=== PATIENT | male | born 1955 | race Caucasian/White ===

== ENCOUNTER 2016-12-23 13:24 | Emergency (ER) | payer MEDICARE ==
[2016-05-11 12:56] VITALS: BMI 26.9
[~2016-12-23 13:24] MED LIST: GLUCOPHAGE1000 MG PO; HYDROCODON-ACE1 EAC7 PO; PRINIVIL20 MG PO
[2016-12-23 14:49] LABS: BASOPHILS 0.5 % (0.0-2.0); EOSINOPHILS 2.1 % (0-7); HEMATOCRIT 48.6 % (42.0-54.0); HEMOGLOBIN 16.9 g/dL (13.5-17.5); IMMATURE GRANULOCYTES 0.3 % (0-5); LYMPHOCYTES 36.7 % (15-50); MCH 31.4 pg (26.0-34.0); MCHC 34.8 g/dL (31.0-37.0); MCV 90.2 fL (80.0-100.0); MEAN PLATELET VOLUME 10.8 fL (7.4-10.4); MONOCYTES 6.7 % (2-11); NEUTROPHILS 53.7 % (40-80); PLATELET COUNT 186 10x3/uL (130-400); RBC 5.39 10x6/uL (4.20-6.10); WBC 9.4 10x3/uL (4.8-10.8)
[2016-12-23 15:14] LABS: ALKALINE PHOSPHATASE 52 U/L (46-116); ALT (SGPT) 54 U/L (10-68); BILIRUBIN - TOTAL 0.25 mg/dL (0.2-1.3); CALC OSMOLALITY 286 mosm/kg (275-300); CARBON DIOXIDE 25.9 mmol/L (21.0-32.0); CHLORIDE - SERUM 106 mmol/L (98-107); POTASSIUM - SERUM 4.2 mmol/L (3.5-5.1); SODIUM 141 mmol/L (136-145); UREA NITROGEN 12 mg/dL (7-18); eGFR NON AFRICAN AMERICAN 81 mL/min (90-120)
[2016-12-23 15:15] LABS: GLUCOSE 198 mg/dL (74-106)
[2016-12-23 15:18] LABS: CREATINE KINASE 57 UL (21-232)
[2016-12-23 15:22] LABS: TROPONIN-I < 0.017 ng/mL (0.000-0.060)
== END 2016-12-23 18:28 | disposition home or self-care (01) ==
LOC: D.ER 13:24
PROVIDERS: Emergency Medicine
DX: S16.1XXA Strain of muscle, fascia and tendon at neck level, initial encounter (principal); X58.XXXA Exposure to other specified factors, initial encounter; Y93.9 Activity, unspecified; Y92.9 Unspecified place or not applicable; M62.838 Other muscle spasm; I25.10 Atherosclerotic heart disease of native coronary artery without angina pectoris; E11.9 Type 2 diabetes mellitus without complications; I10 Essential (primary) hypertension; F17.200 Nicotine dependence, unspecified, uncomplicated

== ENCOUNTER 2018-04-29 23:19 | Outpatient (CLI) | payer MEDICARE, MEDICAID ==
[~2018-04-29] VITALS: Ht 177.8 cm; Wt 71.8 kg
--- NOTE | ~2018-04-29 | HEMODYNAMI ---
PATIENT:GARFIELD MÁRQUEZ MEDICAL RECORD: [id number] : 57 [facility] ADMISSION DATE: 04/30/18 Generatedon:05/01/201811:31 Patient name: GARFIELD MÁRUQEZ Patient #: [id number] SSN: : 1955 Date of study: 05/01/2018 Page: Of Hemodynamic Procedure Report Patient Data Patient Demographics Procedure consent was obtained First Name: GARFIELD Gender: Male Last Name: WILLI : 1955 Middle Initial: B Age: 62 year(s) Patient #: [id number] Race: Additional ID: [id number] Contact details [address]: [address] [place] [address] State: [place] City: [place] Zip code: [address] Past Medical History Allergies Allergen Reaction Date Comments Reported Morphine 05/11/2016 Admission Admission Data Admission Date: 04/30/2018 Admission Time: 1:10 Room #: D.2104 Weight (lbs.): 165 Weight (kg.): 74.84 Procedure Procedure Types Cath Procedure Diagnostic Procedure C [facility] w/Coronaries PCI Procedure Coronary Stent Coronary Stent Initial Procedure Description Procedure Date Procedure Date: 05/01/2018 Procedure Start Time: 11:08 Procedure End Time: 11:26 Procedure Staff Name Function Arthur Kirk MD Performing Physician Chandra Yu RT Monitor Sathish Hensley RN Nurse Clarita Coyle RT Scrub Procedure Data Cath Procedure Fluoroscopy Diagnostic fluoroscopy Total fluoroscopy Time: 4.3 time: 4.3 min min Diagnostic fluoroscopy Total fluoroscopy dose: 577 dose: 577 mGy mGy Contrast Material Contrast Material Type Amount (ml) Isovue 300 112 Entry Location Entry Primary Successful Side Size Upsize Upsize Entry Closure Succes sful Closure Location (Fr) 1 (Fr) 2 (Fr) Remarks Device Remarks Femoral Right 5 Fr 6 Fr Exoseal artery Short Estimated blood loss: 10 ml Diagnostic catheters Device Type Used For End Catheter Placement MULTIPACK JL 4.0 5Fr Procedure catheter MULTIPACK 3DRC 5Fr Procedure catheter MULTIPACK Pigtail 5 Fr Procedure catheter Procedure Complications No complications Procedure Medications Medication Administration Route Dosage 0.9% NaCl I.V. 100 ml/hr Oxygen etCO2 Nasal cannula 2 l/min Heparin Flush Bag added to field 2 bags (1000units/500ml NS) Lidocaine 2% added to field 20 Versed I.V. 2 mg Fentanyl I.V. 100 mcg Versed I.V. 1 mg Heparin Bolus I.V. 7500 units Versed I.V. 1 mg Plavix P.O. 600 mg Hemodynamics Rest Heart Rate: 90 (bpm) Pressure Samples Time Site Value (mmHg) Purpose Heart Use Rate(bpm) 11:09 AO 95/61(76) Snapshot 71 11:13 LV 112/-8,6 Snapshot 74 11:13 AO 101/56(76) Pullback 74 11:13 LV 136/-11,16 Pullback 74 Gradients Valve Time Site 1 Site 2 Mean SEP/DFP Peak To Heart Use (mmHg) (sec/min) Peak Rate (mmHg) (bpm) Aortic 11:13 LV AO 15 20 35 74 136/-11,16 101/56(76) Calculations Valve P-P Mean Valve Index Valve Source Name Gradient Area Flow (cm2) Aortic 35 15 35 15 Snapshots Pre Cath Intra NCS Post Cath Vital Signs Time Heart Resp SPO2 etCO2 NIBP (mmHg) Rhythm Pain Sedation Rate (ipm) (%) (mmHg) Status Level (bpm) 10:56:35 67 12 99 31.5 131/78(106) NSR 0 (11) 10(A) , No pain 11:01:16 71 16 100 33 119/78(97) NSR 0 (11) 10(A) , No pain 11:05:55 69 15 98 33.8 109/75(95) NSR 0 (11) 10(A) , No pain 11:10:31 70 13 98 9 103/67(83) NSR 0 (11) 9(A) , No pain 11:15:08 71 13 99 0 101/64(83) NSR 0 (11) 9(A) , No pain 11:19:42 72 13 99 40.5 108/64(83) NSR 0 (11) 10(A) , No pain 11:24:19 72 14 98 15.7 105/66(84) NSR 0 (11) 10(A) , No pain Medications Time Medication Route Dose Verified Delivered Reason Notes Effectiveness by by 10:57:15 0.9% NaCl I.V. 100 Sathish Sathish Per physician ml/hr Shellie Hensley RN RN 10:57:25 Oxygen etCO2 2 Sathish Sathish Per physician Nasal l/min Shellie Hensley cannula RN RN 10:57:45 Heparin Flush added 2 Sathish Sathish used for Bag to bags Shellie Hensley procedure (1000units/500ml field RN RN NS) 10:57:57 Lidocaine 2% added 20ml Sathish Sathish for local to vial Shellie Hensley anesthetic field RN RN 11:05:49 Versed I.V. 2 mg Sathish Sathish for sedation Shellie Hensley RN RN 11:05:57 Fentanyl I.V. 100 Sathish Sathish for sedation mcg Shellie Hensley RN RN 11:08:07 Versed I.V. 1 mg Sathish Sathish for sedation Shellie Hensley RN RN 11:17:53 Heparin Bolus I.V. 7,500 Sathish Sathish for units Shellie Hensley anticoagulation RN RN 11:21:50 Versed I.V. 1 mg Sathish Sathish for sedation Shellie Hensley RN RN 11:27:46 Plavix P.O. 600 Sathish Sathish for mg Shellie Hensley antiplatelet RN RN therapy Procedure Log Time Note 10:30:43 Chandra Yu RT(R) sent for patient. Start room use. 10:43:44 Time tracking: Regular hours (M-F 7:00 - 5:00) 10:43:48 Plan of Care:Hemodynamics will remain stable., Cardiac rhythm will remain stable., Comfort level will be maintained., Respiratory function will remain adequate., Patient/ family verbilizes understanding of procedure., Procedure tolerated without complication., Recovers from procedure without complications.. 10:53:13 Patient received from PCU to CCL 1 Alert and oriented. Tansferred to table in Supine position. 10:53:15 Warm blankets applied, and danette hugger turned on for patient comfort. 10:53:15 Correct patient and procedure confirmed by team. 10:53:16 Signed procedure consent form obtained from patient. 10:53:17 ECG and BP/O2 sat monitors applied to patient. 10:55:43 Vital chart was started 10:57:15 0.9% NaCl 100 ml/hr I.V. was administered by Sathish Hensley RN; Per physician; 10:57:25 Oxygen 2 l/min etCO2 Nasal cannula was administered by Sathish Hensley RN; Per physician; 10:57:45 Heparin Flush Bag (1000units/500ml NS) 2 bags added to field was administered by Sathish Hensley RN; used for procedure; 10:57:57 Lidocaine 2% 20ml vial added to field was administered by Sathish Hensley RN; for local anesthetic; 10:58:53 Baseline sample Acquired. 10:59:00 Rhythm: sinus rhythm 10:59:01 Full Disclosure recording started 10:59:06 H&P Date Dictated: 05/01/2018 Within 30 days and on chart.. 10:59:07 Pre-procedure instructions explained to patient. 10:59:07 Pre-op teaching completed and patient verbalized understanding. 10:59:10 Family unavailable. 10:59:12 Patient NPO since Midnight. 10:59:14 Is the patient allergic to Iodine/contrast media? No. 10:59:16 Is patient on blood thinner?No 10:59:18 Patient diabetic? Yes. 10:59:18 If diabetic: On Metformin? Yes 10:59:20 If on Metformin: Last Dose? 04/29/2018 10:59:24 Previous problem with sedation/anesthesia? No ? 10:59:26 Snore? Yes 10:59:27 Sleep apnea? Yes 10:59:30 Deviated septum? No 10:59:30 Opens mouth fully? Yes 10:59:31 Sticks out tongue? Yes 10:59:33 Airway obstruction? No ? 10:59:37 Dentures? Yes OUT 10:59:47 Pre procedure: right dorsailis pedis pulse 1+ Palpable, but thready & weak; easily obliterated 10:59:55 Patient pain scale 0/10 ?. 10:59:59 IV patent on arrival in left forearm with 0.9% NaCl at [facility]. 11:00:01 Lab results completed and on chart. 11:00:04 Right groin area was prepped with chlora-prep and draped in sterile fashion 11:00:05 Alarms reviewed by RMonae N. 11:00:06 Sharps counted by scrub and verified by RMonaeN. 11:00:14 Use device set Femoral Dx 11:00:17 PERCUTANEOUS ENTRY 19GA needle opened to sterile field. 11:00:18 Tegaderm 4 x 4 (1626W) opened to sterile field. 11:00:19 ACIST Manifold (93374) opened to sterile field. 11:00:20 ACIST Hand Control (53225) opened to sterile field. 11:00:21 ACIST Syringe (09379) opened to sterile field. 11:00:22 Bag Decanter (2002S) opened to sterile field. 11:00:22 Medline Cath Pack ([id number]) opened to sterile field. 11:00:23 DIAGNOSTIC WIRE .035 260cm J wire (992364) opened to sterile field. 11:00:24 DIAGNOSTIC Multipack 5Fr catheter set (TL0889) opened to sterile field. 11:00:25 SHEATH Prelude 5Fr 0.035 (FKI-0M-59-035) opened to sterile field. 11:04:03 --------ALL STOP TIME OUT------ 11::04 Final Timeout: patient, procedure, and site verified with staff and physician. All members of the team are in agreement. 11:04:07 Right groin site verified by team. 11:04:09 Physical assessment completed. ASA score P 2 - A patient with mild systemic disease as per Arthur Kirk MD. 11:04:12 Sedation plan: IV Moderate Sedation Medication:Versed, Fentanyl 11:05:49 Versed 2 mg I.V. was administered by Sathish Hensley RN; for sedation; 11:05:57 Fentanyl 100 mcg I.V. was administered by Sathish Hensley RN; for sedation; 11:08:04 Procedure started. 11:08:07 Versed 1 mg I.V. was administered by Sathish Hensley RN; for sedation; 11:08:09 Local anesthetic to right femoral artery with Lidocaine 2% by Arthur Kirk MD.INITIAL ACCESS ONLY 11:08:11 Zero performed for pressure channel P1 11:08:33 A 5 Fr sheath was inserted into the Right Femoral artery 11:09:48 A MULTIPACK JL 4.0 5Fr catheter was advanced over the wire and used for Procedure. 11:09:51 LCA angiography performed. 11:11:14 Catheter exchanged over wire. 11:11:22 A MULTIPACK 3DRC 5Fr catheter was advanced over the wire and used for Procedure. 11:11:26 RCA angiography performed. 11:13:01 Catheter exchanged over wire. 11:13:10 A MULTIPACK Pigtail 5 Fr catheter was advanced over the wire and used for Procedure. 11:13:29 LV angiography performed. 11:13:37 LV gram done using VALADEZ 11:13:41 EF : 60 % 11:13:51 LV hemodynamics recorded. 11:13:54 Injector settings: Ml/sec: 10, Volume: 20, 11:13:55 Catheter exchanged over wire. 11:13:59 Use device set KIRK PCI 11:14:07 SHEATH Prelude 6Fr 0.035 (EMD-8U-23-035) opened to sterile field. 11:14:13 GUIDE 6FR AR 1.0 catheter ([id number]) opened to sterile field. 11:14:15 BMW 300cm [place] 2 J wire ([id number]) opened to sterile field. 11:14:16 TUBING High Pressure Extension Tubing ([place]) ([id number]) opened to sterile field. 11:14:17 INFLATOR Merit BasixCompak (UJ2560) opened to sterile field. 11:14:25 Sheath upsized to a 6 Fr Short. 11:16:17 6 Fr AR 1 guide catheter was inserted over the wire 11:17:07 Patient Weight : 165 lbs 11:17:53 Heparin Bolus 7,500 units I.V. was administered by Sathish Hensley RN; for anticoagulation; 11:19:07 BMW wire advanced. 11:21:12 Wire advanced across lesion. 11:21:50 Versed 1 mg I.V. was administered by Sathish Hensley RN; for sedation; 11:23:30 Place stent Inflation Number: 1 A KLAUDIA OTW 2.5 x 22 stent ([id number]) was prepped and advanced across the Dist RCA. The stent was deployed at 14 BRAYAN for 0:10 (min:sec). 11:23:54 Stent catheter was removed intact over wire. 11:23:55 Wire removed. 11:23:55 Guide catheter removed. 11:24:21 EXOSEAL 6Fr (EX600) opened to sterile field. 11:24:38 Sheath removed intact; hemostasis achieved with Exoseal to the Right Femoral artery. 11:24:40 Procedure ended.(Physican Out) 11:25:31 Fluoroscopy time 04.30 minutes. 11::44 Fluoroscopy dose: 577 mGy 11::44 Flurop Dose total: 577 11:25:48 Contrast amount:Isovue 300 112ml. 11:25:49 Sharps counted by scrub and verified by R.N. 11:25:51 Insertion/operative site no bleeding no hematoma. 11:25:53 Post-op/insertion site Right Femoral artery dressed using a 4 x 4 and Tegaderm. 11:25:54 Post Procedure Pulses reassessed and unchanged 11:25:57 Post-procedure physical assessment completed. ASA score P 2 - A patient with mild systemic disease as per Arthur Kirk MD. 11:25:59 Post procedure rhythm: unchanged. 11:26:02 Estimated blood loss: 10 ml 11:26:04 Post procedure instruction explained to patient.Patient verbalizes understanding. 11:26:05 Patient needs reinforcement of post procedure teaching. 11:26:20 Procedure type changed to Cath procedure, Diagnostic procedure, LHC, LHC w/Coronaries, PCI procedure, Coronary Stent, Coronary Stent Initial 11:26:24 Procedure Complication : No complications 11:26:45 Procedure and supply charges have been captured, reviewed, submitted and are correct. 11:26:46 Vital chart was stopped 11:26:47 See physician's report for complete and final results. 11:26:48 Report given to PCU. 11:26:50 Patient transfered to PCU with Bed. 11:26:52 Procedure ended. 11:26:52 Full Disclosure recording stopped 11:27:46 Plavix 600 mg P.O. was administered by Sathish Hensley RN; for antiplatelet therapy; 11:30:45 End room use (Document Last) Intervention Summary Intervention Notes Time ActionType Lesion and Equipment Action# Pressure Duration Attributes Used 11:23:30 Place stent Dist RCA KLAUDIA OTW 2.5 1 14 00:10 x 22 stent ([id number]) Device Usage Item Name Manufacture Quantity Catalog Number Hospital Part Current Minimal Lot# / Charge Number Stock Stock Serial# Code PERCUTANEOUS [place] [employer] 1 [id number] [id number] 5 ENTRY 19GA needle Tegaderm 4 x 4 3M 1 1626W 413438 520409 560898 5 (1626W) ACIST Manifold Acist 1 35118 586755 101433 592399 5 (75370) [employer] Inc ACIST Hand Acist 1 37507 065491 987738 500565 5 Control (47873) [employer] Inc ACIST Syringe Acist 1 74266 353437 020361 663680 20 (10635) [employer] Systems Inc Bag Decanter Microtek 1 2002S 678819 94222 036212 5 (2001S) Medical Inc. Medline Cath Cardinal 1 [id number] 832675 68189 025565 5 Pack Health ([id number]) DIAGNOSTIC WIRE [facility] [place] 1 778022 157390 795027 997775 30 .035 260cm J wire (069030) DIAGNOSTIC Cardinal 1 UG3225 561470 52205 029108 30 Multipack 5Fr Health catheter set (NW2917) SHEATH Prelude Merit 1 ULU-1J-93-035 564951 674178 823024 5 5Fr 0.035 Medical (JEX-7V-42-035) MULTIPACK JL Cardinal 1 860440 5 4.0 5Fr Health catheter MULTIPACK 3DRC Cardinal 1 414203 5 5Fr catheter Health MULTIPACK Cardinal 1 412022 5 Pigtail 5 Fr Health catheter SHEATH Prelude Merit 1 YUO-7T-96-35 730571 1188223 277678 5 6Fr 0.035 Medical (GIN-2R-83-035) GUIDE 6FR AR Medtronic 1 [id number] 963543 64121 973927 1 1.0 catheter (YM6IN94) BMW 300cm Cruz 1 [id number] 717072 590141 765414 5 [place] 2 J Vascular wire ([id number]) TUBING High Merit 1 [id number] 002760 10899 809390 10 Pressure Medical Extension Tubing (Kirk) (ZA9710S) INFLATOR Merit Merit 1 UO0593 024468 633206 350703 15 [facility]6Sense Medical (AI4951) KLAUDIA OTW 2.5 x Medtronic 1 [id number] 727299 88653 540622 5 [id number] 22 stent ([id number]) EXOSEAL 6Fr Cardinal 1 EX600 999554 764666 941257 10 (EX600) Health Signature Audit [place] Stage Time Signature Unsigned Intra-Procedure 05/01/2018 Chandra Yu 11:31:03 AM RT(R) Signatures Monitor : Chandra Yu RT Signature : Date : Time : [place] [id number] [place] [address]
[2018-04-29] MEDS ORDERED: LEVEMIR100 U/M1 SC (23:24)
[2018-04-29 23:37] LABS: APPEARANCE CLEAR (CLEAR); BILIRUBIN NEGATIVE (NEGATIVE); COLOR DK YELLOW (YELLOW); GLUCOSE NEGATIVE (NEGATIVE); KETONE NEGATIVE (NEGATIVE); NITRITE NEGATIVE (NEGATIVE); PROTEIN NEGATIVE (NEGATIVE); UROBILINOGEN NORMAL (NORMAL)
[2018-04-29 23:42] LABS: UDS - AMPHET NEGATIVE QUAL (NEGATIVE); UDS - BARB NEGATIVE QUAL (NEGATIVE); UDS - BENZO NEGATIVE QUAL (NEGATIVE); UDS - COCAINE NEGATIVE QUAL (NEGATIVE); UDS - OPIATE NEGATIVE QUAL (NEGATIVE); UDS - PCP NEGATIVE QUAL (NEGATIVE); UDS - THC NEGATIVE QUAL (NEGATIVE)
[2018-04-29 23:55] LABS: BASOPHILS 0.2 % (0-2); EOSINOPHILS 1.8 % (0-7); HEMATOCRIT 45.6 % (42.0-54.0); HEMOGLOBIN 15.6 g/dL (13.5-17.5); IMMATURE GRANULOCYTES 0.4 % (0-5); LYMPHOCYTES 29.7 % (15-50); MCHC 34.2 g/dL (31.0-37.0); MCV 90.5 fL (80.0-100.0); MEAN PLATELET VOLUME 9.7 fL (7.4-10.4); MONOCYTES 6.5 % (2-11); NEUTROPHILS 61.4 % (40-80); PLATELET COUNT 220 10x3/uL (130-400); RBC 5.04 10x6/uL (4.20-6.10); RDW 12.8 % (11.5-14.5)
[2018-04-30 00:18] LABS: ALKALINE PHOSPHATASE 56 U/L (46-116); ALT (SGPT) 26 U/L (10-68); BILIRUBIN - TOTAL 0.33 mg/dL (0.2-1.3); CALC OSMOLALITY 279 mosm/kg (275-300); CALCIUM 8.5 mg/dL (8.5-10.1); CARBON DIOXIDE 23.5 mmol/L (21.0-32.0); CHLORIDE - SERUM 108 mmol/L (98-107); POTASSIUM - SERUM 4.3 mmol/L (3.5-5.1); SODIUM 139 mmol/L (136-145); UREA NITROGEN 13 mg/dL (7-18); eGFR NON AFRICAN AMERICAN 81 mL/min (90-120)
[2018-04-30 00:19] LABS: GLUCOSE 143 mg/dL (74-106)
[2018-04-30 00:22] LABS: LIPASE 179 U/L (73-393); PRO BNP 32 pg/mL (0-125); TROPONIN-I < 0.017 ng/mL (0.000-0.060)
[2018-04-30 03:45] VITALS: Ht 177.8 cm; Wt 71.8 kg
[2018-04-30 06:06] VITALS: BP 137/93
[2018-04-30 07:53] LABS: BASOPHILS 0.2 % (0-2); HEMATOCRIT 46.4 % (42.0-54.0); HEMOGLOBIN 15.7 g/dL (13.5-17.5); IMMATURE GRANULOCYTES 0.3 % (0-5); LYMPHOCYTES 33.2 % (15-50); MCHC 33.8 g/dL (31.0-37.0); MCV 91.5 fL (80.0-100.0); MEAN PLATELET VOLUME 10.4 fL (7.4-10.4); MONOCYTES 7.2 % (2-11); NEUTROPHILS 57.1 % (40-80); PLATELET COUNT 228 10x3/uL (130-400); RBC 5.07 10x6/uL (4.20-6.10); RDW 13.1 % (11.5-14.5)
[2018-04-30 07:59] LABS: CALC OSMOLALITY 281 mosm/kg (275-300); CALCIUM 8.2 mg/dL (8.5-10.1); CARBON DIOXIDE 23.6 mmol/L (21.0-32.0); CHLORIDE - SERUM 108 mmol/L (98-107); GLUCOSE 128 mg/dL (74-106); POTASSIUM - SERUM 4.8 mmol/L (3.5-5.1); SODIUM 140 mmol/L (136-145); UREA NITROGEN 16 mg/dL (7-18); eGFR NON AFRICAN AMERICAN 81 mL/min (90-120)
[2018-04-30 08:48] VITALS: BP 131/85
[2018-04-30 11:58] VITALS: BP 145/83
[2018-04-30 17:09] VITALS: BP 156/93
[2018-04-30 20:30] VITALS: BP 126/68
[2018-05-01 00:30] VITALS: BP 112/66
[2018-05-01 04:30] VITALS: BP 138/83
[2018-05-01 04:54] LABS: BASOPHILS 0.2 % (0-2); HEMOGLOBIN 15.8 g/dL (13.5-17.5); IMMATURE GRANULOCYTES 0.3 % (0-5); LYMPHOCYTES 29.5 % (15-50); MCH 30.7 pg (26.0-34.0); MCHC 33.6 g/dL (31.0-37.0); MCV 91.3 fL (80.0-100.0); MONOCYTES 8.2 % (2-11); NEUTROPHILS 58.8 % (40-80); PLATELET COUNT 207 10x3/uL (130-400); RBC 5.15 10x6/uL (4.20-6.10); RDW 12.7 % (11.5-14.5); WBC 10.1 10x3/uL (4.8-10.8)
[2018-05-01 05:16] LABS: ALBUMIN 2.8 g/dL (3.4-5.0); ALKALINE PHOSPHATASE 56 U/L (46-116); ALT (SGPT) 24 U/L (10-68); BILIRUBIN - TOTAL 0.41 mg/dL (0.2-1.3); CALC OSMOLALITY 280 mosm/kg (275-300); CALCIUM 8.2 mg/dL (8.5-10.1); CARBON DIOXIDE 28.1 mmol/L (21.0-32.0); CHLORIDE - SERUM 105 mmol/L (98-107); CREATININE - SERUM 0.9 mg/dL (0.6-1.3); GLUCOSE 128 mg/dL (74-106); SODIUM 139 mmol/L (136-145); UREA NITROGEN 15 mg/dL (7-18); eGFR NON AFRICAN AMERICAN > 90 mL/min (90-120)
[2018-05-01 09:39] VITALS: BP 109/70
[2018-05-01] MEDS ORDERED: PLAVIX75 MG PO (11:47)
[2018-05-01] MEDS ORDERED: NICODERM C1 PATCH .1 TRANSDERM (11:47)
[2018-05-01 13:30] VITALS: BP 110/59
== END 2018-05-01 15:47 | disposition home or self-care (01) ==
LOC: OBSVTIME → D.OPS 23:19 → D.ER 23:19 → D.M2 04-30 01:10 → OBSVTIME 04-30 01:10 → D.M2 04-30 01:10 → D.ER 04-30 01:10 → EDSTATUS 05-01 12:15 → D.M2 05-01 15:47 → D.OPS 05-01 15:47 → D.M2 05-01 15:47
PROVIDERS: Family Medicine; Internal Medicine Cardiovascular Disease
DX: I25.110 Atherosclerotic heart disease of native coronary artery with unstable angina pectoris (principal); Z95.5 Presence of coronary angioplasty implant and graft; E78.5 Hyperlipidemia, unspecified; E11.9 Type 2 diabetes mellitus without complications; F17.203 Nicotine dependence unspecified, with withdrawal; I10 Essential (primary) hypertension
CPT/HCPCS: 93458; C9600

== ENCOUNTER 2019-03-25 06:52 | Emergency (ER) | payer MEDICARE, MEDICAID ==
[~2019-03-25] VITALS: Ht 177.8 cm; Wt 72.7 kg
[~2019-03-25 06:52] MED LIST changes: +LEVEMIR100 U/M1 SC; +NICODERM C1 PATCH .1 TRANSDERM; +PLAVIX75 MG PO
[2019-03-25 06:55] VITALS: Ht 177.8 cm; Wt 72.7 kg
[2019-03-25 07:21] LABS: APPEARANCE CLEAR (CLEAR); BILIRUBIN NEGATIVE (NEGATIVE); COLOR YELLOW (YELLOW); GLUCOSE NEGATIVE (NEGATIVE); KETONE NEGATIVE (NEGATIVE); NITRITE NEGATIVE (NEGATIVE); PROTEIN NEGATIVE (NEGATIVE); UROBILINOGEN NORMAL (NORMAL)
[2019-03-25 07:24] LABS: BASOPHILS 0.1 % (0-2); HEMATOCRIT 48.4 % (42.0-54.0); HEMOGLOBIN 17.1 g/dL (13.5-17.5); IMMATURE GRANULOCYTES 0.4 % (0-5); LYMPHOCYTES 8.4 % (15-50); MCH 31.4 pg (26.0-34.0); MCHC 35.3 g/dL (31.0-37.0); MCV 88.8 fL (80.0-100.0); MEAN PLATELET VOLUME 9.5 fL (7.4-10.4); MONOCYTES 3.8 % (2-11); NEUTROPHILS 85.3 % (40-80); PLATELET COUNT 210 10x3/uL (130-400); RBC 5.45 10x6/uL (4.20-6.10); RDW 13.7 % (11.5-14.5); WBC 10.7 10x3/uL (4.8-10.8)
[2019-03-25 07:37] LABS: UDS - AMPHET POSITIVE QUAL (NEGATIVE); UDS - BARB NEGATIVE QUAL (NEGATIVE); UDS - BENZO NEGATIVE QUAL (NEGATIVE); UDS - COCAINE NEGATIVE QUAL (NEGATIVE); UDS - OPIATE NEGATIVE QUAL (NEGATIVE); UDS - PCP NEGATIVE QUAL (NEGATIVE); UDS - THC NEGATIVE QUAL (NEGATIVE)
[2019-03-25 07:38] LABS: INR 1.03 (0.85-1.17)
--- NOTE | 2019-03-25 08:07 | NUR ---
DR. MASON NOTIFIED AND 1:1 SITTER OBSERVATION ORDERED. SITTER AT BEDSIDE. NOTIFIED CHARGE NURSE AND ATTENDING IN REGARDS TO ASSESSMENT FINDINGS. RESOURCES GIVEN TO PT AND SAFETY PLAN INITIATED.
[2019-03-25 08:23] LABS: ALBUMIN 3.1 g/dL (3.4-5.0); ANION GAP 12.1 mmol/L (8-16); BILIRUBIN - TOTAL 0.63 mg/dL (0.2-1.3); CALCIUM 8.2 mg/dL (8.5-10.1); CARBON DIOXIDE 25.6 mmol/L (21.0-32.0); CREATININE - SERUM 1.1 mg/dL (0.6-1.3); POTASSIUM - SERUM 3.7 mmol/L (3.5-5.1)
[2019-03-25 08:26] LABS: ACETAMINOPHEN 0.4 ug/mL (10.0-30.0); MAGNESIUM - SERUM 1.8 mg/dL (1.8-2.4)
[2019-03-25 08:43] LABS: CKMB 2.5 U/L (0.0-3.6); CREATINE KINASE 50 UL (21-232); TROPONIN-I < 0.017 ng/mL (0.000-0.060)
[2019-03-25 13:09] VITALS: BP 122/72
== END 2019-03-25 13:10 ==
LOC: D.ER 06:52
PROVIDERS: Emergency Medicine
DX: F32.9 Major depressive disorder, single episode, unspecified (principal); F15.10 Other stimulant abuse, uncomplicated; R45.851 Suicidal ideations

== ENCOUNTER 2019-04-28 11:47 | Outpatient (CLI) | payer MEDICARE, MEDICAID ==
[~2019-04-28] VITALS: Ht 177.8 cm; Wt 77.1 kg
--- NOTE | ~2019-04-28 | HEMODYNAMI ---
PATIENT:GARFIELD MÁRQUEZ MEDICAL RECORD: [id number] : 57 LOCATION:[facility] D.2118 ADMISSION DATE: 04/28/19 Generatedon:04/30/20198:49 Patient name: GARFIELD MÁRQUEZ Patient #: [id number] SSN: : 1955 Date of study: 04/30/2019 Page: Of Hemodynamic Procedure Report Patient Data Patient Demographics Procedure consent was obtained First Name: GARFIELD Gender: Male Last Name: WILLI : 1955 [facility] Initial: B Age: 63 year(s) Patient #: [id number] Race: Additional ID: [id number] Contact details [address]: [address] [place] [address] State: [place] City: [place] Zip code: [address] Past Medical History Allergies Allergen Reaction Date Comments Reported Morphine 05/11/2016 Morphine 04/30/2019 Admission Admission Data Admission Date: 04/28/2019 Admission Time: 11:47 Room #: D.2118 Weight (lbs.): 169.76 Weight (kg.): 77 Lab Results Lab Result Date: 04/30/2019 Lab Result Time: 0:00 Biochemistry Name Units Result Min Max BUN mg/dl 22 --(----)-* 7 18 Creatinine mg/dl 1.1 --(--*-)-- 0.6 1.3 eGFR ml/min 72 *-(----)-- 90 120 NONAFRICAN CBC Name Units Result Min Max Hematocrit % 43.1 --(*---)-- 42 54 Hemoglobin g/dl 15 --(-*--)-- 13.5 17.5 Procedure Procedure Types Cath Procedure Diagnostic Procedure [facility] w/Coronaries Sedation Charges Moderate Sedation up to 30 minutes PCI Procedure PTCA PTCA Initial Procedure Description Procedure Date Procedure Date: 04/30/2019 Procedure Start Time: 8:09 Procedure End Time: 8:42 Procedure Staff Name Function Yaron Zabala RN Director Of Diversity And Inclusion Deepali eRad RN Nurse Arthur Kirk MD Performing Physician Vijay Enamorado RT Monitor BrandiiXpert RT Scrub Procedure Data Cath Procedure Fluoroscopy Diagnostic fluoroscopy Total fluoroscopy Time: 9.5 time: 9.5 min min Diagnostic fluoroscopy Total fluoroscopy dose: dose: 1127 mGy 1127 mGy Contrast Material Contrast Material Type Amount (ml) Isovue 370 90 Entry Location Entry Primary Successful Side Size Upsize Upsize Entry Closure Succes sful Closure Location (Fr) 1 (Fr) 2 (Fr) Remarks Device Remarks Femoral Right 5 Fr 6 Fr Exoseal artery Short Estimated blood loss: 10 ml Diagnostic catheters Device Type Used For End Catheter Placement MULTIPACK JL 4.0 5Fr Procedure catheter MULTIPACK 3DRC 5Fr Procedure catheter MULTIPACK Pigtail 5 Fr Procedure catheter Procedure Complications No complications Procedure Medications Medication Administration Route Dosage Oxygen etCO2 Nasal cannula 2 l/min Lidocaine 2% added to field 20 Heparin Flush Bag added to field 2 bags (1000units/500ml NS) 0.9% NaCl I.V. 100 ml/hr Versed I.V. 2 mg Fentanyl I.V. 50 mcg Versed I.V. 2 mg Heparin Bolus I.V. 7500 units Nitroglycerin IC/IA I.C. 50 mcg Plavix P.O. 600 mg PHYSICIAN SUMMARY Coronary tree Anatomy Arteries Artery Location Description Pre Post Remarks Stenosis Stenosis RCA Hemodynamics Rest HGB: 15 (g/dl) Heart Rate: 55 (bpm) Pressure Samples Time Site Value (mmHg) Purpose Heart Use Rate(bpm) 8:14 AO 97/63(80) Snapshot 61 8:16 LV 113/1,11 Snapshot 61 8:17 LV 122/4,44 Pullback 60 8:17 AO 113/50(76) Pullback 60 Gradients Valve Time Site 1 Site 2 Mean SEP/DFP Peak To Heart Use (mmHg) (sec/min) Peak Rate (mmHg) (bpm) Aortic 8:17 LV AO 18 15 9 60 122/4,44 113/50(76) Calculations Valve P-P Mean Valve Index Valve Source Name Gradient Area Flow (cm2) Aortic 9 18 9 18 Snapshots Samples Rest 8:05 Baseline whole waves, page 1 8:06 Baseline whole waves, page 1 8:14 Snapshot AO whole waves, page 1 8:16 Snapshot LV whole waves, page 1 8:17 PullBack LV/AO Average Pre Cath Intra NCS Post Cath Vital Signs Time Heart Resp SPO2 etCO2 NIBP (mmHg) Rhythm Pain Sedation Rate (ipm) (%) (mmHg) Status Level (bpm) 8:04:25 55 12 100 37.2 115/71(91) SB 1 (11) 10(A) , Very mild 8:07:15 56 11 99 33.5 124/74(98) SB 1 (11) 10(A) , Very mild 8:11:27 56 12 99 32.7 116/73(91) SB 0 (11) 10(A) , No pain 8:15:35 61 12 99 38.7 117/76(98) SB 0 (11) 9(A) , No pain 8:19:42 57 11 99 30.5 126/77(99) SB 0 (11) 9(A) , No pain 8:23:54 57 11 99 35.7 114/71(85) SB 0 (11) 9(A) , No pain 8:27:54 57 12 99 33.5 111/72(95) SB 0 (11) 9(A) , No pain 8:32:00 59 13 98 28.2 112/75(90) SB 0 (11) 9(A) , No pain 8:36:06 57 12 98 32 114/75(94) SB 0 (11) 9(A) , No pain 8:40:11 57 13 98 33.5 123/78(107) SB 0 (11) 10(A) , No pain Medications Time Medication Route Dose Verified Delivered Reason Notes Effectiveness by by 7:50:59 Oxygen etCO2 2 Arthur Buffie used for Nasal l/min Reagan Read RN procedure cannula 7:51:07 Lidocaine 2% added 20ml Arthur Arthur for local to vial Reagan Kirk MD anesthetic field 7:51:12 Heparin Flush added 2 Arthur Arthur used for Bag to bags Reagan Kirk MD procedure (1000units/500ml field NS) 7:51:21 0.9% NaCl I.V. 100 Arthur Buffie Per physician ml/hr Reagan Read RN 8:09:09 Versed I.V. 2 mg Arthur Buffie for sedation Reagan Read RN 8:09:16 Fentanyl I.V. 50 Arthur Buffie for sedation mcg Reagan Read RN 8:14:01 Versed I.V. 2 mg Arthur Shonnaie for sedation Reagan Read RN 8:21:16 Heparin Bolus I.V. 7,500 Arthur Shonnaie for Verifi ed units Reagan Read RN anticoagulation with Dr. Kirk 8:29:46 Nitroglycerin I.C. 50 Arthur Arthur for IC/IA mcg Reagan Kirk MD vasodilation 8:42:47 Plavix P.O. 600 Arthur Shonnaie for mg Reagan Read RN antiplatelet therapy Procedure Log Time Note 7:38:41 Signed procedure consent form obtained from patient. 7:38:43 Diagnostic Cath status Urgent 7:38:43 Time tracking: Regular hours (M-F 7:00 - 5:00) 7:38:48 Plan of Care:Hemodynamics will remain stable., Cardiac rhythm will remain stable., Comfort level will be maintained., Respiratory function will remain adequate., Patient/ family verbilizes understanding of procedure., Procedure tolerated without complication., Recovers from procedure without complications.. 7:42:09 Patient allergic to Morphine 7:42:48 Vijay Enamorado RT(R) sent for patient. Start room use. 7:44:28 Patient Weight : 169.76 lbs 7:50:24 Per pt report, states he has not taken plavix in a while at home. has had 2 doses in hospital. 7:50:59 Oxygen 2 l/min etCO2 Nasal cannula was administered by Deepali Read RN; used for procedure; 7:51:07 Lidocaine 2% 20ml vial added to field was administered by Arthur Kirk MD; for local anesthetic; 7:51:12 Heparin Flush Bag (1000units/500ml NS) 2 bags added to field was administered by Arthur Kirk MD; used for procedure; 7:51:21 0.9% NaCl 100 ml/hr I.V. was administered by Deepali Raed RN; Per physician; 7:51:56 Lab Result : Hemoglobin 15 g/dl 7:51:56 Lab Result : Hematocrit 43.1 % 7:51:56 Lab Result : eGFR NONAFRICAN 72 ml/min 7:51:56 Lab Result : BUN 22 mg/dl 7:51:56 Lab Result : Creatinine 1.1 mg/dl 7:52:54 Patient received from Med II to CCL 1 Alert and oriented. Tansferred to table in Supine position. 7:52:55 Warm blankets applied, and danette hugger turned on for patient comfort. 7:52:56 ECG and BP/O2 sat monitors applied to patient. 7:52:56 Correct patient and procedure confirmed by team. 8:03:17 Vital chart was started 8:05:11 Baseline sample Acquired. 8:05:15 Rhythm: sinus bradycardia 8:05:16 Full Disclosure recording started 8:05:35 Full Disclosure recording stopped 8:06:13 Vital chart was started 8:06:24 Baseline sample Acquired. 8:06:25 Full Disclosure recording started 8:07:00 H&P Date Dictated: 04/28/2019 Within 30 days and on chart., H&P Addendum completed by physician on day of procedure. (MUST COMPLETE FOR ALL OUTPATIENTS). 8:07:01 Pre-procedure instructions explained to patient. 8:07:02 Pre-op teaching completed and patient verbalized understanding. 8:07:14 Family unavailable. 8:07:15 Patient NPO since Midnight. 8:07:16 Is the patient allergic to Iodine/contrast media? No. 8:07:18 Is patient on blood thinner?Yes 8:07:22 ACC The patient was administered the following blood thiners within the last 24 hours: ACCPlavix 8:07:24 Patient diabetic? Yes. 8:07:26 If diabetic: On Metformin? Yes 8:07:29 Previous problem with sedation/anesthesia? No ? 8:07:30 Snore? Yes 8:07:32 Sleep apnea? Yes 8:07:33 Deviated septum? No 8:07:34 Opens mouth fully? Yes 8:07:35 Sticks out tongue? Yes 8:07:44 Airway obstruction? Yes COPD 8:07:54 Dentures? Yes OUT 8:07:59 Pre procedure: right dorsailis pedis pulse 1+ Palpable, but thready & weak; easily obliterated 8:08:08 Patient pain scale 0/10 ?. 8:08:19 IV patent on arrival in left hand with 0.9% NaCl at [facility]. 8:08:21 Lab results completed and on chart. 8:08:25 Right groin area was prepped with chlora-prep and draped in sterile fashion 8:08:26 Alarms reviewed by R. N. 8:08:27 Sharps counted by scrub and verified by R.N. 8:08:28 Final Timeout: patient, procedure, and site verified with staff and physician. All members of the team are in agreement. 8:08:28 --------ALL STOP TIME OUT------ 8:08:32 Right groin site verified by team. 8:08:35 Fire Safety Assessment: A--An alcohol-based skin anteseptic being used preoperatively., C--Open oxygen or nitrous oxide is being used., D--An ESU, laser, or fiber-optic light is being used. 8:08:42 Physical assessment completed. ASA score P 2 - A patient with mild systemic disease as per Arthur Kirk MD. 8:08:58 2) 60-89 Mildly reduced kidney function, and other findings (as for stage 1) point to kidney disease. 8:09:09 Versed 2 mg I.V. was administered by Deepali Read RN; for sedation; 8:09:13 Maximum allowable contrast does (3.7 X eGFR X 0.75)199 ml. 8:09:16 Fentanyl 50 mcg I.V. was administered by Deepali Read RN; for sedation; 8:09:17 Sedation plan: IV Moderate Sedation Medication:Versed, Fentanyl 8:09:24 Use device set Femoral Dx 8:09:25 Tegaderm 4 x 4 ([id number]) opened to sterile field. 8:09:28 ACIST Syringe (67614) opened to sterile field. 8:09:29 Medline Cath Pack ([id number]) opened to sterile field. 8:09:29 Bag Decanter (2002S) opened to sterile field. 8:09:30 ACIST Manifold (61898) opened to sterile field. 8:09:30 ACIST Hand Control (42986) opened to sterile field. 8:09:31 DIAGNOSTIC Multipack 5Fr catheter set ([id number]) opened to sterile field. 8:09:33 EMERALD Guide Wire (502-708) opened to sterile field. 8:09:34 SHEATH 5FR Ellenwood (VVL344) opened to sterile field. 8:09:38 Procedure started. 8:09:42 Local anesthetic to right femoral artery with Lidocaine 2% by Arthur Kirk MD.INITIAL ACCESS ONLY 8:11:06 Zero performed for pressure channel P1 8:11:08 Zero performed for pressure channel P1 8:11:11 Zero performed for pressure channel P1 8:11:14 Zero performed for pressure channel P1 8:11:32 A 5 Fr sheath was inserted into the Right Femoral artery 8:11:41 A MULTIPACK JL 4.0 5Fr catheter was advanced over the wire and used for Procedure. 8:12:28 LCA angiography performed. 8:13:12 Catheter exchanged over wire. 8:13:50 A MULTIPACK 3DRC 5Fr catheter was advanced over the wire and used for Procedure. 8:14:01 Versed 2 mg I.V. was administered by Deepali Read RN; for sedation; 8:14:28 RCA angiography performed. 8:14:50 Catheter exchanged over wire. 8:15:25 A MULTIPACK Pigtail 5 Fr catheter was advanced over the wire and used for Procedure. 8:16:36 LV angiography performed. 8:16:38 LV gram done using VALADEZ 8:16:49 EF : 55 % 8:17:03 LV hemodynamics recorded. 8:17:08 Injector settings: Ml/sec: 10, Volume: 20, 8:17:54 Catheter exchanged over wire. 8:18:28 Use device set KIRK PCI 8:18:29 SHEATH 6FR Ellenwood (HYD084) opened to sterile field. 8:18:33 BMW 300cm Townsend 2 J wire ([id number]) opened to sterile field. 8:18:35 INFLATOR Merit BasixCompak (XK9165) opened to sterile field. 8:18:37 TUBING High Pressure Extension Tubing (Reagan) ([id number]) opened to sterile field. 8:19:51 GUIDE 6FR AR 1.0 catheter ([id number]) opened to sterile field. 8:20:04 Sheath upsized to a 6 Fr Short. 8:20:15 6 Fr AR 1 guide catheter was inserted over the wire 8:20:28 Pre PCI Site: [place] dRCA has 99% stenosis. 8:21:16 Heparin Bolus 7,500 units I.V. was administered by Deepali Read RN; for anticoagulation; Verified with Dr. Kirk 8:21:23 BMW wire advanced. 8:23:05 Wire advanced across lesion. 8:26:03 Inflate balloon Inflation number: 1 A EMERGE OTW 2.5 x 15 balloon ([id number]) was prepped and advanced across the R PDA -1, then inflated to 14 BRAYAN for 0:10 (min:sec) -1. 8:27:38 Inflation number: 2 The EMERGE OTW 2.5 x 15 balloon ([id number]) was reinflated across the R PDA -1, to 16 BRAYAN for 0:10 (min:sec) -1. 8:29:02 Balloon removed over the wire. 8:29:46 Nitroglycerin IC/IA 50 mcg I.C. was administered by Arthur Kirk MD; for vasodilation; 8:35:14 Inflate balloon Inflation number: 3 A NC EUPHORA 3.0 x 15 balloon ([id number]) was prepped and advanced across the R PDA , then inflated to 12 BRAYAN for 0:10 (min:sec) . 8:35:37 Inflation number: 4 The NC EUPHORA 3.0 x 15 balloon ([id number]) was reinflated across the R PDA , to 13 BRAYAN for 0:10 (min:sec) . 8:37:05 Inflation number: 5 The NC EUPHORA 3.0 x 15 balloon ([id number]) was reinflated across the R PDA , to 16 BRYAAN for 0:10 (min:sec) . 8:37:57 EXOSEAL 6Fr (EX600) opened to sterile field. 8:38:02 Balloon removed over the wire. 8:38:03 Wire removed. 8:38:06 Guide catheter removed. 8:38:22 Post PCI Site: [place] PDA has 0% stenosis. 8:39:19 Sheath removed intact; hemostasis achieved with Exoseal to the Right Femoral artery. 8:39:21 Procedure ended.(Physican Out) 8:40:39 Fluoroscopy time 09.50 minutes. 8:40:45 Fluoroscopy dose: 1127 mGy 8:40:45 Flurop Dose total: 1127 8:40:57 Contrast amount:Isovue 370 90ml. 8:41:06 Sharps counted by scrub and verified by R.N. 8:41:08 Insertion/operative site no bleeding no hematoma. 8:41:10 Post-op/insertion site Right Femoral artery dressed using a 4 x 4 and Tegaderm. 8:41:13 Post right femoral artery:stable, soft, clean and dry 8:41:15 Post Procedure Pulses reassessed and unchanged 8:41:20 Post-procedure physical assessment completed. ASA score P 2 - A patient with mild systemic disease as per Arthur Kirk MD. 8:41:22 Post procedure rhythm: unchanged. 8:41:24 Estimated blood loss: 10 ml 8:41:26 Patient needs reinforcement of post procedure teaching. 8:41:26 Post procedure instruction explained to patient.Patient verbalizes understanding. 8:41:34 Procedure type changed to Cath procedure, Diagnostic procedure, LHC, LHC w/Coronaries, Sedation Charges, Moderate Sedation up to 30 minutes, PCI procedure, PTCA, PTCA Initial 8:42:23 Procedure and supply charges have been captured, reviewed, submitted and are correct. 8:42:26 Procedure Complication : No complications 8:42:29 Vital chart was stopped 8:42:29 See physician's report for complete and final results. 8:42:30 Report given to PCU. 8:42:33 Patient transfered to PCU with Stretcher. 8:42:35 Procedure ended. 8:42:35 Full Disclosure recording stopped 8:42:40 End room use (Document Last) 8:42:47 Plavix 600 mg P.O. was administered by Deepali Read RN; for antiplatelet therapy; Intervention Summary Intervention Notes Time ActionType Lesion and Equipment Action# Pressure Duration Attributes Used 8:26:03 Inflate R PDA EMERGE OTW 1 14 00:10 balloon 2.5 x 15 balloon ([id number]) 8:27:38 Reinflate R PDA EMERGE OTW 2 16 00:10 balloon 2.5 x 15 balloon ([id number]) 8:35:14 Inflate R PDA NC EUPHORA 3 12 00:10 balloon 3.0 x 15 balloon ([id number]) 8:35:37 Reinflate R PDA NC EUPHORA 4 13 00:10 balloon 3.0 x 15 balloon ([id number]) 8:37:05 Reinflate R PDA NC EUPHORA 5 16 00:10 balloon 3.0 x 15 balloon ([id number]) Device Usage Item Name Manufacture Quantity Catalog Number Hospital Part Current Min imal Lot# / Charge Number Stock Stock Serial# Code Tegaderm 4 x 3M 1 1626W [id number] 916230 000035 5 4 (1626W) ACIST Acist 1 35788 702681 583521 941671 20 Syringe Medical (02793) Systems Inc Bag Decanter Microtek 1 2001S 678105 04761 460543 5 (2001S) Medical Inc. Medline Cath Medline 1 [id number] 719059 22510 212233 5 Pack ([id number]) ACIST Hand Acist 1 32192 929381 903515 141236 5 Control Medical (94038) Systems Inc ACIST Acist 1 39968 477483 238718 510736 5 Manifold Medical (02327) Systems Inc DIAGNOSTIC Cardinal 1 LT9448 117782 52769 373943 30 Multipack Health 5Fr catheter set (IT0440) EMERALD Cardinal 1 502-455 876479 639475 293589 5 Guide Wire Health (502-455) SHEATH 5FR Terumo 1 DQP032 275743 768266 459868 5 Ellenwood (MVR500) MULTIPACK JL Cardinal 1 137925 5 4.0 5Fr Health catheter MULTIPACK Cardinal 1 857570 5 3DRC 5Fr Health catheter MULTIPACK Cardinal 1 352125 5 Pigtail 5 Fr Health catheter SHEATH 6FR Terumo 1 CEO469 662923 540640 639684 40 Ellenwood (VAH092) BMW 300cm Cruz 1 [id number] 791637 367916 890507 5 Townsend 2 Vascular J wire (6985245L) INFLATOR Merit 1 WJ5686 470800 334849 135111 15 Merit Medical BasixCompak (QS6380) TUBING High Merit 1 NV2375E 767917 67333 713482 10 Pressure Medical Extension Tubing (Kirk) (MP7462J) GUIDE 6FR AR Medtronic 1 BI4LZ08 059454 32276 021392 1 1.0 catheter (TQ8IT96) EMERGE OTW Gallaway 1 [id number] 184975 736030 881329 5 [id number] 2.5 x 15 Scientific balloon ([id number]) NC EUPHORA Medtronic 1 [id number] 191778 022289 894173 1 [id number] 3.0 x 15 balloon ([id number]) EXOSEAL 6Fr Cardinal 1 EX600 619738 997040 407816 10 (EX600) Health Signature Audit [place] Stage Time Signature Unsigned Intra-Procedure 04/30/2019 Vijay Enamorado RT(R) 8:46:11 AM RT(R) 04/30/2019 8:48:49 AM Intra-Procedure 04/30/2019 Vijay Enamorado 8:49:48 AM RT(R) Signatures Nurse : Deepali Read RN Signature : Date : Time : Performing Physician : Signature : Arthur Kirk MD Date : Time : Monitor : Vijay Enamorado RT Signature : Date : Time : [address] [address]
[2019-04-28 12:21] LABS: BASOPHILS 0.3 % (0-2); EOSINOPHILS 1.7 % (0-7); HEMATOCRIT 43.1 % (42.0-54.0); IMMATURE GRANULOCYTES 0.6 % (0-5); LYMPHOCYTES 27.9 % (15-50); MCH 31.4 pg (26.0-34.0); MCHC 34.8 g/dL (31.0-37.0); MCV 90.4 fL (80.0-100.0); MEAN PLATELET VOLUME 9.7 fL (7.4-10.4); MONOCYTES 6.9 % (2-11); NEUTROPHILS 62.6 % (40-80); PLATELET COUNT 231 10x3/uL (130-400); RBC 4.77 10x6/uL (4.20-6.10); RDW 13.7 % (11.5-14.5); WBC 16.6 10x3/uL (4.8-10.8)
[2019-04-28 12:58] LABS: ALBUMIN 3.5 g/dL (3.4-5.0); ALKALINE PHOSPHATASE 69 U/L (46-116); ALT (SGPT) 26 U/L (10-68); BILIRUBIN - TOTAL 0.18 mg/dL (0.2-1.3); CALC OSMOLALITY 286 mosm/kg (275-300); CALCIUM 8.4 mg/dL (8.5-10.1); CARBON DIOXIDE 25.1 mmol/L (21.0-32.0); CHLORIDE - SERUM 105 mmol/L (98-107); CREATININE - SERUM 1.1 mg/dL (0.6-1.3); POTASSIUM - SERUM 3.9 mmol/L (3.5-5.1); PROTEIN - SERUM 6.8 g/dL (6.4-8.2); SODIUM 140 mmol/L (136-145); UREA NITROGEN 22 mg/dL (7-18); eGFR NON AFRICAN AMERICAN 72 mL/min (90-120)
[2019-04-28 12:59] LABS: GLUCOSE 197 mg/dL (74-106)
[2019-04-28 13:15] LABS: CKMB 8.6 U/L (0.0-3.6); CREATINE KINASE 156 UL (21-232); PRO BNP 667 pg/mL (0-125)
[2019-04-28 13:17] LABS: TROPONIN-I 4.535 ng/mL (0.000-0.060)
--- NOTE | 2019-04-28 14:14 | NUR ---
RECEIVED PT FROM ER VIA W/C AAOX4 RESP UNLABORED SKIN PT DENIES ANY PAIN AT THIS TIME
[2019-04-28 15:24] VITALS: BP 120/67; Ht 177.8 cm; Wt 77.1 kg
[2019-04-28 16:39] LABS: CKMB 7.6 U/L (0.0-3.6); CREATINE KINASE 131 UL (21-232)
[2019-04-28 16:54] LABS: TROPONIN-I 5.804 ng/mL (0.000-0.060)
[2019-04-28 20:00] VITALS: BP 101/64
--- NOTE | 2019-04-28 20:14 | NUR ---
INITIAL ROUNDS AND ASSESSMENT COMPLETED. PT RESTING WITH NO DISTRESS. CPOC.
--- NOTE | 2019-04-28 22:27 | NUR ---
PAGE TO DR PERLA AND REPORTED PT'S ALLERGY TO MORPHINE AND REQUEST FOR PAIN MED NOW. ORDERS RECIEVED.
--- NOTE | 2019-04-28 23:10 | NUR ---
MEDICATED WITH DILAUDID 2MG SIVP AND HUMULIN R 10 UNITS FOR FSBS 264.
[2019-04-28 23:25] LABS: CKMB 5.8 U/L (0.0-3.6); CREATINE KINASE 101 UL (21-232)
[2019-04-29] VITALS: BP 115/68; BP 139/80
--- NOTE | 2019-04-29 03:10 | NUR ---
PT RESTING IN BED WITH EYES CLOSED. RESPS EVEN/NONLABORED. NO DISTRESS. HAS NOT ASKED FOR ANY FURTHER PAIN MED SINCE HE RECIEVED IV DILAUDID EARLIER. CALL LIGHT IN REACH. CPOC.
--- NOTE | 2019-04-29 03:28 | NUR ---
PT AWAKENED FOR VITAL SIGNS AND IMMEDIATELY REQUESTED PAIN MEDS FOR CHEST PAIN 03/26. IV DILAUDID 2MG SIVP ADMINISTERED. VSS.
[2019-04-29 04:00] LABS: CKMB 5.7 U/L (0.0-3.6); CREATINE KINASE 92 UL (21-232); TROPONIN-I 5.363 ng/mL (0.000-0.060)
--- NOTE | 2019-04-29 07:15 | NUR ---
RECEIVED PT IN BED EYES CLOSED RESP UNLABORED NAD NOTED
[2019-04-29 08:44] VITALS: BP 112/70
--- NOTE | 2019-04-29 11:20 | NUR ---
FSBS 188 REGULAR INSULIN 4 UNITS GIVEN SQ LT AYRM
[2019-04-29 13:19] VITALS: BP 133/68
[2019-04-29 16:29] VITALS: BP 107/72
--- NOTE | 2019-04-29 16:43 | NUR ---
FSBS 205 REGULAR INSULIN 8 UNITS SQ RT ARM
[2019-04-29 20:00] VITALS: BP 114/53; BP 142/73
--- NOTE | 2019-04-29 22:04 | NUR ---
2132 PT REQUESTING PAIN MED TO HELP HIS WITH CHEST DISCOMFORT. MEDICATED WITH DILAUDID 2MG SIVP. REMINDED NPO AFTER MIDNIGHT.
[2019-04-30] VITALS: BP 123/56
[2019-04-30 04:13] VITALS: BP 125/79
--- NOTE | 2019-04-30 05:42 | NUR ---
PT HAS BEEN RESTLESS AND AWAKE ALL NIGHT. HE TOOK A SHOWER AT 0330, EVEN KNOWING HE WOULD HAVE TO HIBICLENS AT END OF SHIFT. HE HAS BEEN NPO SINCE MIDNIGHT. CPOC.
--- NOTE | 2019-04-30 07:41 | NUR ---
PRE-OPS GIVEN. REFUSES SCDS AT THIS TIME. WILL CONT. PLAN OF CARE.
--- NOTE | 2019-04-30 07:51 | NUR ---
LEAVING FOR STATE EDITOR BY BED.
[2019-04-30 07:58] LABS: BASOPHILS 0.2 % (0-2); EOSINOPHILS 1.8 % (0-7); HEMATOCRIT 41.7 % (42.0-54.0); HEMOGLOBIN 14.2 g/dL (13.5-17.5); IMMATURE GRANULOCYTES 0.8 % (0-5); LYMPHOCYTES 26.4 % (15-50); MCH 30.8 pg (26.0-34.0); MCHC 34.1 g/dL (31.0-37.0); MCV 90.5 fL (80.0-100.0); MEAN PLATELET VOLUME 10.2 fL (7.4-10.4); MONOCYTES 6.7 % (2-11); NEUTROPHILS 64.1 % (40-80); PLATELET COUNT 221 10x3/uL (130-400); RBC 4.61 10x6/uL (4.20-6.10); RDW 13.9 % (11.5-14.5)
[2019-04-30 07:59] LABS: WBC 12.3 10x3/uL (4.8-10.8)
[2019-04-30 08:13] LABS: CALC OSMOLALITY 287 mosm/kg (275-300); CALCIUM 8.4 mg/dL (8.5-10.1); CARBON DIOXIDE 28.2 mmol/L (21.0-32.0); CHLORIDE - SERUM 105 mmol/L (98-107); CREATININE - SERUM 0.9 mg/dL (0.6-1.3); GLUCOSE 150 mg/dL (74-106); POTASSIUM - SERUM 4.7 mmol/L (3.5-5.1); SODIUM 140 mmol/L (136-145); UREA NITROGEN 29 mg/dL (7-18); eGFR NON AFRICAN AMERICAN > 90 mL/min (90-120)
--- NOTE | 2019-04-30 09:08 | NUR ---
BACK FROM [facility]. VS WNL. RIGHT GROIN STABLE WITHOUT BLEEDING OR HEMATOMA NOTED. WILL MONITOR.
[2019-04-30] MEDS ORDERED: ASPIRIN81 MG PO (11:16)
--- NOTE | 2019-04-30 13:09 | NUR ---
BED REST UP. GROIN STABLE. IV AND TELEMETRY DCD. DC PLANS GIVEN. UNDERSTANDING VOICED. ESCORTED TO CAR BY W/C.
--- NOTE | 2019-04-30 16:28 | MORECARE ---
CASE MANAGEMENT DISCHARGE SUMMARY PATIENT: GARFIELD MÁRQUEZ UNIT: [id number] ADM DATE: 04/28/19 AGE: 63 : 57 SEX: M ROOM/BED: AUTHOR: VALENTE,DOC PHYSICIAN: REFERRING PHYSICIAN: RYNE PERLA M.D. DATE OF SERVICE: 04/30/19 Discharge Plan Patient Name: GARFIELD MÁRQUEZ Facility: [facility]:[place] : 1955 Planned Disposition: Home Anticipated Discharge Date: 04/30/19 Discharge Date: 04/30/2019 Expected LOS: 2 Initial Reviewer: [email or web address] Initial Review Date: 04/30/2019 Generated: 04/30/19 5:28 pm Comments DCP- Discharge Planning Updated by [email or web address]: Den Estrada on 04/30/19 3:[address] Patient Name: GARFIELD MÁRQUEZ Admission Status: ER Accout number: [id number] Admission Date: 04-28-2019 : 1955 Admission Diagnosis: Attending: RYNE PERLA Current LOS: 2 Anticipated DC Date: 04-30-2019 Planned Disposition: Home Primary Insurance: [employer] ADV Discharge Planning Comments: CM RECIEVED ORDER FOR PT LIVING IN REHAB OR HALF WAY HOUSE. CM MET WITH PT IN ROOM TO DISCUSS DISCHARGE PLANNING AND NEEDS. PT REPORTS LIVING AT HOME IN [facility] [place] [facility], [facility] IS CALLED [facility] [place].. PT HAS NO MEDICAL EQUIPMENT AND NO OUTSIDE SERVICES ASSISTING IN THE HOME. CM DISCUSSED AVAILABILITY OF HOME HEALTH, REHAB SERVICES AND MEDICAL EQUIPMENT. PT REPORTS BEING CLEAN AND SOBER FOR THREE MONTHS AND HAS COMMITED HIMSELF TO SOBER LIVING. PT DENIES DISCHARGE NEEDS, REPORTS SOMEONE FROM [employer] WILL PICK HIM UP FOR DISCHARGE HOME. . Plunket Nurse: Den Estrada DCPIA - Discharge Planning Initial Assessment Updated by [email or web address]: Den Estrada on 04/30/19 4:22 pm * Is the patient Alert and Oriented? Yes * How many steps to enter\\exit or inside your home? * PCP DR. ROSA * [facility] * Preadmission Environment Home Alone * ADLs Independent * Equipment None * Other Equipment NO MEDICAL EQUIPMENT PROVIDER PREFERENCE * List name and contact numbers for known caregivers / representatives who currently or will assist patient after discharge: KIMMIE LOWE, "[facility], * Verbal permission to speak to the caregivers and representatives has been obtained from the patient. N/A * Community resources currently utilized None * Please name any agencies selected above. NONE * Additional services required to return to the preadmission environment? No * Can the patient safely return to the preadmission environment? Yes * Has this patient been hospitalized within the prior 30 days at any hospital? No Patient Name: GARFIELD MÁRQUEZ Page [id number] at 1628 All edits/amendments must be made on the electronic document DICTATION DATE: 04/30/191627 PIANO INSTRUCTOR: KATE 04/30/191627 RPT#: [id number] DC DATE:04/30/19 STATUS: [address] [address] END OF REPORT
== END 2019-04-30 13:12 | disposition home or self-care (01) ==
LOC: D.ER 11:47 → D.OPS 11:47 → D.M2 11:47 → EDSTATUS 14:19 → D.OPS 04-30 13:12
PROVIDERS: Emergency Medicine; ATTEND Internal Medicine Cardiovascular Disease
DX: I21.4 Non-ST elevation (NSTEMI) myocardial infarction (principal); I25.110 Atherosclerotic heart disease of native coronary artery with unstable angina pectoris; T82.855A Stenosis of coronary artery stent, initial encounter; Q24.5 Malformation of coronary vessels; I70.201 Unspecified atherosclerosis of native arteries of extremities, right leg; Z01.812 Encounter for preprocedural laboratory examination

== ENCOUNTER 2019-07-26 14:36 | Outpatient (CLI) | payer MEDICARE, MEDICAID ==
[~2019-07-26] VITALS: Ht 177.8 cm; Wt 78.2 kg
--- NOTE | ~2019-07-26 | HEMODYNAMI ---
PATIENT:GARFIELD MÁRQUEZ MEDICAL RECORD: [id number] : 57 [facility] [id number] ADMISSION DATE: 07/26/19 Generatedon:07/27/20199:16 Patient name: GARFIELD MÁRQUEZ Patient #: [id number] SSN: [id number] : 1955 Date of study: 07/27/2019 Page: Of Hemodynamic Procedure Report Patient Data Patient Demographics Procedure consent was obtained First Name: GARFIELD Gender: Male Last Name: WILLI : 1955 Middle Initial: B Age: 63 year(s) Patient #: [id number] Race: SSN: [id number] Additional ID: [id number] Contact details Address: [address] [address] State: [place] City: [place] Zip code: [address] Past Medical History Allergies Allergen Reaction Date Comments Reported Morphine 05/11/2016 Morphine 04/30/2019 Other allergy 07/27/2019 morphine Admission Admission Data Admission Date: 07/26/2019 Admission Time: 16:13 Arrival Date: 07/27/2019 Arrival Time: 0:00 Admit Source: Emergency Insurance Payor: Medicare department [facility] #: [id number] Room #: 2123 Height (in.): 70.08 BSA: 1.96 (m2) Height (cm.): 178 BMI: 24.62 (kg/m2) Weight (lbs.): 171.96 Weight (kg.): 78 Lab Results Lab Result Date: 07/27/2019 Lab Result Time: 0:00 Biochemistry Name Units Result Min Max BUN mg/dl 11 --(-*--)-- 7 18 Creatinine mg/dl 1 --(--*-)-- 0.6 1.3 eGFR ml/min 90 --(*---)-- 90 120 AM CBC Name Units Result Min Max Hemoglobin g/dl 16 --(--*-)-- 13.5 17.5 Procedure Procedure Types Cath Procedure Diagnostic Procedure [facility] w/Coronaries FFR/IVUS FFR Initial FFR Additional Sedation Charges Moderate Sedation up to 30 minutes PCI Procedure Coronary Stent Coronary Stent Initial x2 Procedure Description Procedure Date Procedure Date: 07/27/2019 Procedure Start Time: 8:29 Procedure End Time: 9:13 Procedure Staff Name Function Lenard Giordano MD Performing Physician Aviva Suarez RT Monitor Deepali Read RN Nurse Yany Burns RT Scrub Chandra Yu RT Monitor Indication Chest pain Procedure Data Cath Procedure Fluoroscopy Diagnostic fluoroscopy Total fluoroscopy Time: 7.1 time: 7.1 min min Diagnostic fluoroscopy Total fluoroscopy dose: 815 dose: 815 mGy mGy Contrast Material Contrast Material Type Amount (ml) Isovue 300 140 Entry Location Entry Primary Successful Side Size Upsize Upsize Entry Closure Succes sful Closure Location (Fr) 1 (Fr) 2 (Fr) Remarks Device Remarks Femoral Right 5 Fr 6 Fr Exoseal artery Short Estimated blood loss: 10 ml Diagnostic catheters Device Type Used For End Catheter Placement MULTIPACK Pigtail 5 Fr LV Angiography catheter MULTIPACK JL 4.0 5Fr Left Coronary catheter Angiography MULTIPACK 3DRC 5Fr Right Coronary catheter Angiography Procedure Complications No complications Procedure Medications Medication Administration Route Dosage Oxygen etCO2 Nasal cannula 2 l/min Lidocaine 2% added to field 20 Heparin Flush Bag added to field 2 bags (1000units/500ml NS) 0.9% NaCl I.V. 100 ml/hr Versed I.V. 2 mg Fentanyl I.V. 100 mcg Heparin Bolus I.V. 4000 units Hemodynamics Rest BSA: 1.96 (m2) HGB: 16 (g/dl) O2 Consumption: Estimated: 217.66 (ml/min) O2 Cons umption indexed: Estimated:111.05 (ml/min/m) Heart Rate: 54 (bpm) Snapshots Pre Cath Intra NCS Post Cath Vital Signs Time Heart Resp SPO2 etCO2 NIBP Rhythm Pain Sedation Rate (ipm) (%) (mmHg) (mmHg) Status Level (bpm) 8:21:43 58 13 97 10.5 105/67(80) NSR 0 (11) 10(A) , No pain 8:25:52 55 13 100 0 107/65(79) NSR 0 (11) 10(A) , No pain 8:30:00 57 12 99 0 99/65(78) NSR 0 (11) 10(A) , No pain 8:34:08 60 16 98 0 105/64(81) NSR 0 (11) 9(A) , No pain 8:38:20 59 11 98 0 103/56(75) NSR 0 (11) 9(A) , No pain 8:42:30 57 11 98 0 93/57(73) NSR 0 (11) 9(A) , No pain 8:46:36 56 12 98 0 99/63(76) NSR 0 (11) 9(A) , No pain 8:50:41 59 11 98 0 96/58(74) NSR 0 (11) 9(A) , No pain 8:54:50 61 12 98 0 103/61(77) NSR 0 (11) 10(A) , No pain 8:58:59 63 11 98 30 108/64(89) NSR 0 (11) 10(A) , No pain 9:03:09 62 11 99 9 108/67(87) NSR 0 (11) 10(A) , No pain 9:07:21 61 15 96 36.8 110/64(82) NSR 0 (11) 10(A) , No pain 9:11:33 58 13 95 19.5 114/67(86) NSR 0 (11) 10(A) , No pain Medications Time Medication Route Dose Verified Delivered Reason Notes Effectiveness by by 8:21:10 Oxygen etCO2 2 Lenard Palumbo used for Nasal l/min Pasquale Read RN procedure cannula 8:21:24 Lidocaine 2% added 20ml Lenard Weinberg used for to vial Pasquale Giordano MD procedure field 8:21:57 Heparin Flush added 2 Lenardrosalind Weinberg used for Bag to bags Pasquale Giordano MD procedure (1000units/500ml field NS) 8:22:09 0.9% NaCl I.V. 100 Lenard Palumbo Per physician ml/hr Pasquale Read RN 8:29:15 Fentanyl I.V. 100 Lenard Kilpatrickie for sedation mcg Pasquale Read RN 8:29:15 Versed I.V. 2 mg Lenard Palumbo for sedation Pasquale Read RN 8:47:52 Heparin Bolus I.V. 4000 Lenard Palumbo for verifi ed units Pasquale Read RN anticoagulation with dr giordano Procedure Log Time Note 7:56:52 Diagnostic Cath Status : Urgent 7:57:59 Admit Source: Emergency department 7:58:52 ACC Patient presents with Stable Angina CCS Anginal Class 3--Marked limitation of physical activity, angina occurs with ordinary activity.. 7:59:36 Deepali Read RN sent for patient. Start room use. 7:59:40 Procedure Status Urgent Heart Cath (IP). 8:02:11 ACCPatient has been prescribed/administered the following anti-anginal medication within the last 2 weeks: FELTON-Inhibitor 8:02:14 Time tracking: Regular hours (M-F 7:00 - 5:00) 8:02:21 Plan of Care:Hemodynamics will remain stable., Cardiac rhythm will remain stable., Comfort level will be maintained., Respiratory function will remain adequate., Patient/ family verbilizes understanding of procedure., Procedure tolerated without complication., Recovers from procedure without complications.. 8:05:21 Informed consent obtained and on chart 8:08:00 Arrival Date: 07/27/2019 12:00:00 AM 8:08:16 Insurance Payor : Medicare 8:08:21 Patient Height : 70.08 inches 8:08:26 Patient Weight : 171.96 lbs 8:08:52 Indication : Chest pain 8:10:31 Patient received from Med II to CCL 1 Alert and oriented. Tansferred to table in Supine position. 8:20:34 Vital chart was started 8:21:00 Warm blankets applied, and danette hugger turned on for patient comfort. 8:21:01 Correct patient and procedure confirmed by team. 8:21:01 ECG and BP/O2 sat monitors applied to patient. 8:21:02 Baseline sample Acquired. 8:21:07 Rhythm: sinus rhythm 8:21:10 Oxygen 2 l/min etCO2 Nasal cannula was administered by Deepali Read RN; used for procedure; Verbal order read back and verified. 8:21:19 Full Disclosure recording started 8:21:20 8:21:24 Lidocaine 2% 20ml vial added to field was administered by Lenard Giordano MD; used for procedure; Verbal order read back and verified. 8:21:32 H&P Date Dictated: 07/27/2019 Within 30 days and on chart.. 8:21:35 Pre-procedure instructions explained to patient. 8:21:36 Pre-op teaching completed and patient verbalized understanding. 8:21:41 Family in waiting room. 8:21:47 Family unavailable. 8:21:54 Patient NPO since Midnight. 8:21:57 Heparin Flush Bag (1000units/500ml NS) 2 bags added to field was administered by Lenard Giordano MD; used for procedure; Verbal order read back and verified. 8:22:09 0.9% NaCl 100 ml/hr I.V. was administered by Deepali Read RN; Per physician; Verbal order read back and verified. 8:22:14 Patient allergic to Other allergymorphine 8:22:20 Is the patient allergic to Iodine/contrast media? No. 8:22:28 Was the patient premedicated? Yes 8:22:31 Is patient on blood thinner?Yes 8:22:41 ACC The patient was administered the following blood thiners within the last 24 hours: ACCPlavix 8:23:03 Patient diabetic? Yes. 8:23:05 If diabetic: On Metformin? Yes 8:23:17 If on Metformin: Last Dose? 07/26/2019 8:23:20 ----Pre-sedation anethsthesia assessment.---- 8:23:33 Previous problem with sedation/anesthesia? No ? 8:23:35 Snore? Yes 8:23:37 Sleep apnea? No 8:23:39 Deviated septum? No 8:23:41 Opens mouth fully? Yes 8:23:42 Sticks out tongue? Yes 8:25:25 Airway obstruction? No ? 8:25:30 Dentures? No ? 8:26:57 Patient pain scale 9/10 jaw and neck. 8:27:04 Pre procedure: right dorsailis pedis pulse 2+ Normal; easily identifiable; not easily obliterated 8:27:09 Pre procedure: left dorsailis pedis pulse 2+ Normal; easily identifiable; not easily obliterated 8:27:20 IV patent on arrival in left forearm with 0.9% NaCl at O. 8::59 Lab Result : BUN 11 mg/dl 8:59 Lab Result : eGFR AM 90 ml/min 8::59 Lab Result : Creatinine 1 mg/dl 8::59 Lab Result : Hemoglobin 16 g/dl 8:28:10 Lab results completed and on chart. 8:28:15 Right groin area was prepped with chlora-prep and draped in sterile fashion 8:28:17 Alarms reviewed by R. N. 8:28:18 Sharps counted by scrub and verified by R.N. 8:28:19 Physician arrived 8:28:20 --------ALL STOP TIME OUT------ 8:28:21 Final Timeout: patient, procedure, and site verified with staff and physician. All members of the team are in agreement. 8:28:23 Right groin site verified by team. 8:28:29 Fire Safety Assessment: A--An alcohol-based skin anteseptic being used preoperatively., C--Open oxygen or nitrous oxide is being used., D--An ESU, laser, or fiber-optic light is being used. 8:28:34 Physical assessment completed. ASA score P 2 - A patient with mild systemic disease as per Lenard Giordano MD. 8:28:39 1) 90+ Normal kidney functon but urine findings or structural abnormalities or genetic trait point to kidney disease. 8:28:45 Maximum allowable contrast dose (3.7 X eGFR X 0.75)249 ml. 8:28:51 Sedation plan: IV Moderate Sedation Medication:Versed, Fentanyl 8:28:58 Procedure started. 8:29:02 Use device set Femoral Dx 8:29:05 ACIST Syringe (50202) opened to sterile field. 8:29:05 Bag Decanter (2002) opened to sterile field. 8:29:06 Medline Cath Pack ([id number]) opened to sterile field. 8:29:08 ACIST Hand Control (91900) opened to sterile field. 8:29:09 ACIST Manifold (92948) opened to sterile field. 8:29:10 DIAGNOSTIC Multipack 5Fr catheter set ([id number]) opened to sterile field. 8:29:11 Tegaderm 4 x 4 (1626W) opened to sterile field. 8:29:14 SHEATH 5FR [place] (CEZ063) opened to sterile field. 8:29:15 Fentanyl 100 mcg I.V. was administered by Deepali Read RN; for sedation; Verbal order read back and verified. 8:29:15 Versed 2 mg I.V. was administered by Deepali Read RN; for sedation; Verbal order read back and verified. 8:29:21 Zero performed for pressure channel P1 8:29:33 Local anesthetic to right femoral artery with Lidocaine 2% by Lenard Giordano MD.INITIAL ACCESS ONLY 8:29:50 A 5 Fr sheath was inserted into the Right Femoral artery 8:30:19 A MULTIPACK Pigtail 5 Fr catheter was advanced over the wire and used for LV Angiography. 8:30:27 LV hemodynamics recorded. 8:30:43 EF : 60 % 8:30:47 LV gram done using VALADEZ 8:30:49 VAIBHAVALD Guide Wire (029-196) opened to sterile field. 8:30:53 Injector settings: Ml/sec: 5, Volume: 15, 8:30:56 Catheter removed. 8:31:02 A MULTIPACK JL 4.0 5Fr catheter was advanced over the wire and used for Left Coronary Angiography. 8:31:43 LCA angiography performed. 8:32:28 Catheter removed. 8:32:48 A MULTIPACK 3DRC 5Fr catheter was advanced over the wire and used for Right Coronary Angiography. 8:33:17 INFLATOR Merit BasixCompak (NI4537) opened to sterile field. 8:33:40 SHEATH 6FR [place] (ITT541) opened to sterile field. 8:34:23 RCA angiography performed. 8:34:29 Lengby Verrata Plus pressure wire (28248X) opened to sterile field. 8:34:37 ACC Pre-intervention HENRIQUE Flow is 3. 8:34:47 Pre PCI Site: [place] dRCA has 80% stenosis. 8:35:09 Sheath upsized to a 6 Fr Short. 8:35:32 GUIDE 6FR AR 2.0 SH catheter ([id number]) opened to sterile field. 8:35:52 6 Fr ar2 sh guide catheter was inserted over the wire 8:36:14 FFR/IFR wire advanced. 8:36:42 Zero performed for pressure channel P1 8:36:56 Zero performed for pressure channel P1 8:37:30 Zero performed for pressure channel P1 8:37:46 Zero performed for pressure channel P1 8:38:10 Zero performed for pressure channel P1 8:38:17 Zero performed for pressure channel P1 8:39:05 Zero performed for pressure channel P1 8:46:44 Wire advanced across lesion. 8:47:44 Baseline FFR 1. 8:47:52 Heparin Bolus 4000 units I.V. was administered by Deepali Read RN; for anticoagulation; verified with dr giordano Verbal order read back and verified. 8:48:21 dRCA lesion measured at 0.88 with IFR 8:50:11 Place stent Inflation Number: 1 A KLAUDIA RX 2.5 x 08 stent ([id number]) was prepped and advanced across the Dist RCA 80. The stent was deployed at 11 BRAYAN for 0:10 (min:sec) . 8:50:54 Inflate balloon Inflation number: 2 A NC EUPHORA 3.0 x 15 balloon ([id number]) was prepped and advanced across the Dist RCA , then inflated to 21 BRAYAN for 0:10 (min:sec) . 8:51:05 Inflation number: 3 The NC EUPHORA 3.0 x 15 balloon ([id number]) was reinflated across the Dist RCA , to 21 BRAYAN for 0:00 (min:sec) . 8:51:31 Inflation number: 4 The NC EUPHORA 3.0 x 15 balloon ([id number]) was reinflated across the Dist RCA , to 21 BRAYAN for 0:00 (min:sec) . 8:51:43 Inflation number: 5 The NC EUPHORA 3.0 x 15 balloon ([id number]) was reinflated across the Dist RCA , to 21 BRAYAN for 0:00 (min:sec) . 8:52:12 Inflation number: 6 The NC EUPHORA 3.0 x 15 balloon ([id number]) was reinflated across the Dist RCA , to 5 BRAYAN for 0:00 (min:sec) . 8:52:39 Inflation number: 7 The NC EUPHORA 3.0 x 15 balloon ([id number]) was reinflated across the Dist RCA , to 23 BRAYAN for 0:10 (min:sec) . 8:54:10 Balloon removed over the wire. 8:54:14 Wire removed. 8:54:15 Guide catheter removed. 8:54:19 GUIDE 6FR XBLAD 3.5 catheter ([id number]) opened to sterile field. 8:55:05 Post PCI Site: [place] dRCA has 0% stenosis. 8:55:31 6 Fr xblad3.5 guide catheter was inserted over the wire 8:56:12 FFR/IFR wire advanced. 8:56:16 Wire advanced across lesion. 8:56:22 Baseline FFR 1. 8:57:43 mLAD lesion measured at 0.84 with IFR 8:57:51 ACC Pre-intervention HENRIQUE Flow is 3. 8:58:03 Pre PCI Site: [place] mLAD has 80% stenosis. 8:59:39 Place stent Inflation Number: 1 A KLAUDIA RX 2.5 x 08 stent ([id number]) was prepped and advanced across the Mid LAD 80. The stent was deployed at 13 BRAYAN for 0:10 (min:sec) . 8:59:40 Post PCI Site: [place] mLAD has 0% stenosis. 8:59:57 ACT drawn and resulted at 325 seconds. (normal therapeutic range 180-240 seconds). 9:00:08 Stent catheter was removed intact over wire. 9:00:09 Wire removed. 9:00:10 Guide catheter removed. 9:00:27 EXOSEAL 6Fr (EX600) opened to sterile field. 9:00:50 Sheath removed intact; hemostasis achieved with Exoseal to the Right Femoral artery. 9:00:53 Procedure ended.(Physican Out) 9:06:51 Fluoroscopy time 07.10 minutes. 9:06:59 Fluoroscopy dose: 815 mGy 9:06:59 Flurop Dose total: 815 9:07:07 Dose Area Product 40176 mGy/cm. 9:07:14 Contrast amount:Isovue 300 140ml. 9:07:17 Maximum allowable dose exceeded? No. 9:07:19 Sharps counted by scrub and verified by R.N. 9:07:22 Insertion/operative site no bleeding no hematoma. 9:07:28 Post-op/insertion site Right Femoral artery dressed using a 4 x 4 and Tegaderm. 9:07:32 Post Procedure Pulses reassessed and unchanged 9:07:37 Post-procedure physical assessment completed. ASA score P 2 - A patient with mild systemic disease as per Lenard Giordano MD. 9:07:43 Post procedure rhythm: unchanged. 9:07:47 Estimated blood loss: 10 ml 9:07:50 Post procedure instruction explained to patient.Patient verbalizes understanding. 9:07:51 Patient needs reinforcement of post procedure teaching. 9:08:55 Procedure type changed to Cath procedure, Diagnostic procedure, LHC, [facility] w/Coronaries, FFR/IVUS, FFR Initial, FFR Additional, Sedation Charges, Moderate Sedation up to 30 minutes, PCI procedure, Coronary Stent, Coronary Stent Initial x2 9:08:57 Procedure and supply charges have been captured, reviewed, submitted and are correct. 9:11:48 Procedure Complication : No complications 9:11:52 Vital chart was stopped 9:12:01 [facility] Findings: MVD- PCI performed (see procedure note) 9:12:07 Operative report dictated upon procedure completion. 9:12:08 See physician's report for complete and final results. 9:13:53 Report given to [facility]. 9:13:59 Patient transfered to [facility] with Bed. 9:14:14 ACC-PCI Only Patient was given prescriptions, or instructed by Lenard Giordano MD to start/continue the following medications upon discharge: Plavix 9:14:27 End room use (Document Last) Intervention Summary Intervention Notes Time ActionType Lesion and Equipment Used Action# Pressure Duration Attributes 8:50:11 Place stent Dist RCA KLAUDIA RX 2.5 x 1 11 00:10 08 stent ([id number]) 8:50:54 Inflate Dist RCA NC EUPHORA 3.0 2 21 00:10 balloon x 15 balloon ([id number]) 8:51:05 Reinflate Dist RCA NC EUPHORA 3.0 3 21 00:00 balloon x 15 balloon ([id number]) 8:51:31 Reinflate Dist RCA NC EUPHORA 3.0 4 21 00:00 balloon x 15 balloon ([id number]) 8:51:43 Reinflate Dist RCA NC EUPHORA 3.0 5 21 00:00 balloon x 15 balloon ([id number]) 8:52:12 Reinflate Dist RCA NC EUPHORA 3.0 6 5 00:00 balloon x 15 balloon ([id number]) 8:52:39 Reinflate Dist RCA NC EUPHORA 3.0 7 23 00:10 balloon x 15 balloon ([id number]) 8:59:39 Place stent Mid LAD KLAUDIA RX 2.5 x 1 13 00:10 08 stent ([id number]) Device Usage Item Name Manufacture Quantity Catalog Hospital Part Current Minimal Lot# / Number Charge Number Stock Stock Serial# Code ACIST Syringe Acist 1 22813 852206 546171 076985 20 (47850) Medical Systems Inc Bag Decanter Microtek 1 2001S 677456 97347 477097 5 () Medical Inc. Medline Cath Medline 1 [id number] 138892 91834 390531 5 Pack ([id number]) ACIST Hand Acist 1 30641 560446 896850 854370 5 Control Medical (73850) Systems Inc ACIST Manifold Acist 1 35230 388558 035325 443677 5 (89762) Medical Systems Inc DIAGNOSTIC Cardinal 1 WN1672 268598 25829 042744 30 Multipack 5Fr Health catheter set (EF8393) Tegaderm 4 x 4 3M 1 1626W 195909 756948 875903 5 (1626W) SHEATH 5FR Terumo 1 ICS355 551619 579155 982133 5 [place] (JBK395) MULTIPACK Cardinal 1 107724 5 Pigtail 5 Fr Health catheter MULTIPACK JL Cardinal 1 432470 5 4.0 5Fr Health catheter MULTIPACK 3DRC Cardinal 1 562722 5 5Fr catheter Health INFLATOR Merit Merit 1 HW4276 415030 295632 237145 15 Calastone Medical (VZ0342) SHEATH 6FR Terumo 1 YTI592 908551 752778 193045 40 [place] (JLG729) EMERALD Guide Cardinal 1 502-455 346201 341309 096662 5 Wire (502-455) Semnur Pharmaceuticalso Lengby 1 01100I 312668 863655037 956853 5 Verrata Plus pressure wire (19740O) GUIDE 6FR AR Medtronic 1 [id number] 085231 93680 337401 1 2.0 SH catheter (LP9LT7IV) KLAUDIA RX 2.5 x Medtronic 2 [id number] 305127 3446812 580326 5 [id number] 08 stent [id number] ([id number]) NC EUPHORA 3.0 Medtronic 1 [id number] 491603 863171 724328 1 [id number] x 15 balloon ([id number]) GUIDE 6FR Cardinal 1 [id number] 595783 533291 045549 10 XBLAD 3.5 Health catheter ([id number]) EXOSEAL 6Fr Cardinal 1 EX600 646388 622284 668528 10 (EX600) Health Signature Audit [place] Stage Time Signature Unsigned Intra-Procedure 07/27/2019 Aviva 9:15:22 AM Erick RT(R) (CV) Intra-Procedure 07/27/2019 Deepali Read RN 9:15:53 AM Intra-Procedure 07/27/2019 Lenard Giordano 9:16:23 AM [id number] [place] [address]
[~2019-07-26 14:36] MED LIST changes: +ASPIRIN81 MG PO
--- NOTE | 2019-07-26 14:48 | NUR ---
CALLED PHARMACY TO REQUEST BANANA BAG TO BE TUBED TO ER
--- NOTE | 2019-07-26 15:13 | NUR ---
According to the Suicide Risk Assessment he rates low and does not require a 1:1 observation.
[2019-07-26 15:18] LABS: BASOPHILS 0.4 % (0-2); EOSINOPHILS 2.1 % (0-7); HEMATOCRIT 46.8 % (42.0-54.0); IMMATURE GRANULOCYTES 0.5 % (0-5); LYMPHOCYTES 30.2 % (15-50); MCH 31.6 pg (26.0-34.0); MCHC 34.2 g/dL (31.0-37.0); MCV 92.5 fL (80.0-100.0); MEAN PLATELET VOLUME 9.6 fL (7.4-10.4); MONOCYTES 5.9 % (2-11); NEUTROPHILS 60.9 % (40-80); PLATELET COUNT 232 10x3/uL (130-400); RBC 5.06 10x6/uL (4.20-6.10); RDW 13.2 % (11.5-14.5); WBC 10.2 10x3/uL (4.8-10.8)
[2019-07-26 15:26] LABS: APTT 28.9 SECONDS (22.8-39.4); INR 0.95 (0.85-1.17); PROTIME 12.2 SECONDS (11.6-15.0)
[2019-07-26 15:33] LABS: ALBUMIN 3.5 g/dL (3.4-5.0); ALKALINE PHOSPHATASE 57 U/L (46-116); ALT (SGPT) 21 U/L (10-68); BILIRUBIN - TOTAL 0.26 mg/dL (0.2-1.3); CALC OSMOLALITY 281 mosm/kg (275-300); CALCIUM 8.5 mg/dL (8.5-10.1); CARBON DIOXIDE 29.9 mmol/L (21.0-32.0); CHLORIDE - SERUM 104 mmol/L (98-107); GLUCOSE 103 mg/dL (74-106); POTASSIUM - SERUM 4.3 mmol/L (3.5-5.1); PROTEIN - SERUM 6.8 g/dL (6.4-8.2); SODIUM 142 mmol/L (136-145); UREA NITROGEN 11 mg/dL (7-18); eGFR NON AFRICAN AMERICAN 80 mL/min (90-120)
[2019-07-26 15:44] LABS: AMYLASE - SERUM 43 U/L (25-115); CKMB 3.4 U/L (0.0-3.6); CREATINE KINASE 56 UL (21-232); LIPASE 154 U/L (73-393); MAGNESIUM - SERUM 1.8 mg/dL (1.8-2.4)
[2019-07-26 15:45] LABS: TROPONIN-I < 0.017 ng/mL (0.000-0.060)
--- NOTE | 2019-07-26 17:13 | NUR ---
RECIEVED FROM ER. ALERT AND ORIENTED.TELEMERTY SHOWS SR 73. SL TO LEFT AC. SR UP WITH CALL LIGHT IN REACH. UP AB SUSANNA.
--- NOTE | 2019-07-26 19:20 | NUR ---
ASSESSMENT COMPLETE, PT A&O. RESPERATIONS EVEN ON RA. IV TO LEFT AC SL, SITE CLEAN AND DRY. PT DENIES NEEDS AT THIS TIME, BED LOW, CL IN REACH.
[2019-07-26 20:00] VITALS: BP 137/73
[2019-07-27 00:01] VITALS: BP 112/63
[2019-07-27 04:00] VITALS: BP 108/68
[2019-07-27 04:07] VITALS: Ht 177.8 cm; Wt 78.2 kg
--- NOTE | 2019-07-27 07:43 | NUR ---
ALERT AND ORIENTED. C/O SOME PAIN IN CHEST,BUT JUST HAD PAIN MEDS. TELEMERTY SHOWS SR 74. LEFT AC SL. NPO FOR CATH THIS MORNING. WILL MONITOR
--- NOTE | 2019-07-27 08:24 | NUR ---
PATIENT REQUESTED THAT I CONTACT HIS PIPEMAN, ELADIO PEÑA (CB:[phone], FAX:[phone]), BECAUSE HE WAS DUE AT COURT THIS AM AND HE WASN'T GOING TO MAKE IT. @ 0238, I PLACED A CALL TO THE NUMBER GIVEN. A YOUNG LADY ANSWERED THE PHONE (NAME NOT IDENTIFIED). I EXPLAINED THE REASON I WAS CALLING (DID NOT EVEN HAVE THE CHANCE TO STATED THE PAROLEE'S NAME, AND WAS PLACED ON HOLD. SHE CAME BACK TO THE PHONE AND STATED THAT WE WERE GOING TO HAVE TO FAX A LETTER FROM THE PHYSICIAN STATING WHY IT IS HE COULD NOT BE DISCHARGED FOR HIS COURT HEARING AND WHAT WAS GOING ON TO THEM DUE TO MISSING THE COURT HEARING AGAIN. I GAVE HER THE PATIENTS NAME, AND WAS TOLD "WE KNOW". I SPOKE WITH DR IRAHETA WHO WAS WILLING TO SIGN A LETTER TYPED UP BY ME OR HE STATED HE COULD DICTATE A LETTER. I EXPLAINED I COULD TYPE ONE OUT REAL QUICK IF HE WOULD BE ON THE FLOOR FOR A MOMENT. LETTER WAS TYPED AND SIGNED. IT WAS FAXED WITH A COPY OF THE H&P EXPLAINING THE SEVERITY OF THE PATIENT'S SYMPTOMS. FAX CONFIRMATION WAS RECEIVED AT [id number].
--- NOTE | 2019-07-27 09:01 | HP ---
PATIENT: GARFIELD WYNNE MEDICAL RECORD: [id number] ACCOUNT: [id number] LOCATION:[address] : 57 ADMISSION DATE: 07/26/19 PCP: ENOCH ROSA MD HISTORY AND PHYSICAL EXAMINATION DIAGNOSES: 1. Unstable angina class IV. 2. Coronary artery disease. 3. Previous percutaneous transluminal coronary angioplasty stent right coronary artery. 4. Hypertension. 5. Hyperlipidemia. 6. Family history of coronary artery disease. HISTORY OF PRESENT ILLNESS: Mr. Wynne presents with increasing chest pain, it is a class IV rest pain just like that of his previous angina, very typical angina, a squeezing tightness sensation, radiation to the left arm, just like that of his previous angina. He presented in April with 99% stenosis of the RCA. The chest pain is just like that he had previously, in fact, now it is worse. His EKG has no acute ST-T abnormalities. He continues to have the pain at a 5/10 level associated with nausea. He as well has been more short of breath over the past 2 weeks and that this has been escalating as well. PHYSICAL EXAMINATION: CONSTITUTIONAL/GENERAL APPEARANCE: Well nourished, well developed, appears stated age. EYES: Lids and conjunctivae noninjected. No discharge. No pallor. ENT: Lips within normal limit. No cyanosis. No pallor. NECK: Carotid arteries, bilateral normal upstroke. No bruits. No thrills. No jugular venous pressure or distention. CERVICAL LYMPH NODES: Nontender. Nonenlarged. THYROID: Not enlarged. No nodules. CARDIOVASCULAR: Precordial exam, nondisplaced. No heaves or pericardial thrills. Rate and rhythm, regular. Heart sounds, normal S1, normal S2. No S3, no gallop, no rub. Systolic murmur, not heard. Diastolic murmur, not heard. RESPIRATORY: Respiratory effort, unlabored. Normal curvature. No thoracic deformity. No chest wall tenderness. Percussion, resonant. Auscultation, clear. No wheezes, no rales, no rhonchi. ABDOMEN: Soft, nondistended, nontender. No abdominal pain, no vomiting and normal appetite. MUSCULOSKELETAL: No joint tenderness, normal gait, normal tone. SKIN: Warm and dry. OVERALL IMPRESSION: Chest pain compatible with angina. I have reviewed the cardiac catheterization film from the April intervention. This was in-stent restenosis. There appears to be continued stenosis after the stented area. This very well be the etiology of the pain or he may have repeat in-stent restenosis or stenosis around that area with his escalating angina in a patient with a past history of coronary artery disease, on aspirin and Plavix; hypertension and hyperlipidemia. He is at high risk for cardiac event. We will proceed with coronary angiography. TRANSINT:[id number] Voice Confirmation ID: [id number] DOCUMENT ID: [id number] HISTORY AND PHYSICAL [id number] GARFIELD WYNNE JEFFREY MD at 0901 CC: [id number] DICTATION DATE: 07/26/19 1524 FOOTBALL PAD REPAIRER: 07/26/19 1614 ADM IN [facility] [address] [place] [address]
--- NOTE | 2019-07-27 09:33 | NUR ---
BACK FROM [facility]OCK[facility]. V/S STABLE. DRSG TO RIGHT GROIN DRY AND INTACK. PPP. TELEMERTY SHOWS SB 58. SR UP WITH CALL LIGHT IN TACT
--- NOTE | 2019-07-27 10:10 | NUR ---
V/S STABLE. TELEMERTY SHOWS SB. RIGHT GROIN SOFT WITH DRSG DRY AND INTACK.PPP. DENIES ANY NEEDS. NO CHEST PAIN
--- NOTE | 2019-07-27 10:42 | NUR ---
WHEN ASKED ABOUT FLU SHOT UPON DISCHARGE, PATIENT WANTS ONE, ORDERED. PATIENT IS REQUESTING PRAVACHOL 20 MG ONE DAILY #90 WITH 3 REFILLS TO BE CALLED TO [facility] [place].
[2019-07-27] MEDS ORDERED: PRAVASTATIN SOD10 MG PO (10:45)
[2019-07-27 12:00] VITALS: BP 110/67
--- NOTE | 2019-07-27 13:08 | NUR ---
PT UP WALKING POST CATH. CATH SITE CLEAN AND DRY, NO BLEEDING. PPP INSTRUCTIONS GIVEN TO PT. AWAITING TRANSPORTATION
--- NOTE | 2019-07-27 13:43 | NUR ---
TO PRIVATE CAR PER WHEELCHAIR.
--- NOTE | 2019-07-27 15:27 | MORECARE ---
CASE MANAGEMENT DISCHARGE SUMMARY PATIENT: GARFIELD MÁRQUEZ UNIT: [id number] ADM DATE: 07/26/19 AGE: 63 : 57 SEX: M ROOM/BED: D.2123 AUTHOR: PARDEEP VICTOR PHYSICIAN: REFERRING PHYSICIAN: DARNELL IRAHETA MD DATE OF SERVICE: 07/27/19 Discharge Plan Patient Name: GARFIELD MÁRQUEZ Facility: [facility]:[place] : 1955 Planned Disposition: Home Anticipated Discharge Date: 07/27/19 Discharge Date: 07/27/2019 Expected LOS: 1 Initial Reviewer: [email or web address] Initial Review Date: 07/27/2019 Generated: 07/27/19 4:27 pm Patient Name: GARFIELD MÁRQUEZ Page [id number] at 1527 All edits/amendments must be made on the electronic document DICTATION DATE: 07/27/19 [address]: KATE 07/27/19 1527 RPT#: [id number] DC DATE:07/27/19 STATUS: DIS IN [facility] [address] [place] [address] END OF REPORT
--- NOTE | 2019-07-30 11:10 | OP ---
PATIENT NAME: GARFIELD MÁRQUEZ MEDICAL RECORD: [id number] :57 LOCATION:D.M2 D.2123 ADMISSION DATE:07/26/19 SURGEON: DARNELL IRAHETA MD DATE OF OPERATION: 07/27/2019 PROCEDURES: 1. PTCA stent RCA. 2. PTCA stent LAD. 3. IFR RCA. 4. IFR LAD. 5. Left heart catheterization. 6. Selective coronary angiography. 7. Left ventriculogram. INDICATION: Unstable angina class IV. PROCEDURE IN DETAIL: After informed consent was obtained and after a detailed description of risks, benefits as well as alternative therapies, the patient elected to proceed with angiogram and angioplasty. The right femoral area was prepped and draped in normal sterile fashion. Right femoral artery was cannulated via modified Seldinger technique with placement of 6-Maori sheath. All catheters exchanged through this sheath. FINDINGS: Left ventriculogram was performed in standard 30-degree VALADEZ view, reveals good cardiac wall motion, ejection fraction is 60%. SELECTIVE CORONARY ANGIOGRAPHY: 1. Left main is with no significant angiographic disease. 2. Left anterior descending has previously placed stents, these are widely patent; however, there is a 70% stenosis in the mid distal LAD and IFR is abnormal at 0.86. 3. Left circumflex has moderate irregularities, but no flow-limiting stenosis. 4. Right coronary has mild irregularities. Previously placed stents are patent. There is at least 70% stenosis at the area of the previously placed stents followed by a 70% to 80% stenosis after this. The IFR is abnormal at 0.88. PTCA STENT OF THE RCA: The un-stented area was addressed with a 2.5 x 8 mm Jcarlos. The stented area was addressed with a 3.0 high pressure balloon taken to 23 atmospheres. Result was 0% residual stenosis. No angiographic evidence of dissection or thrombus. PTCA STENT OF THE LAD: The stent used was a 2.5 x 8 mm Jcarlos. Result was 0% residual stenosis. OVERALL IMPRESSION: Successful percutaneous transluminal coronary angioplasty stent of the right coronary artery and left anterior descending, both going from 80% initial stenosis, both with an initial abnormal instantaneous wave-free ratio to 0% residual [id number]. TRANSINT:[id number] Voice Confirmation ID: [id number] DOCUMENT ID: [id number] OPERATIVE REPORT [id number] GARFIELD MÁRQUEZ JEFFREY MD at 1110 CC: [id number] DICTATION DATE: 07/27/19906 FLAKE MILLER HELPER: 07/27/19 1045 DIS IN 07/27/19 [facility] [address] [place] [id number]
--- NOTE | 2019-07-30 11:10 | DS ---
PATIENT:GARFIELD WYNNE :57 MEDICAL RECORD: [id number] DISCHARGE SUMMARY ADMISSION DATE: 07/26/19 DISCHARGE DATE: 07/27/19 DATE OF DISCHARGE: 07/27/2019 DIAGNOSES: 1. Unstable angina. 2. Coronary artery disease. 3. Percutaneous transluminal coronary angioplasty stent right coronary artery and left anterior descending this admission. 4. Hypertension. 5. Hyperlipidemia. HOSPITAL COURSE: Mr. Wynne presents with unstable anginal symptomatology, underwent successful PTCA stent of the RCA and LAD. He had no further anginal symptomatology. Discharged home with no changes in his medications as he is already on aspirin and Plavix. We will follow up with [facility] in 1 month. TRANSINT:[id number] Voice Confirmation ID: [id number] DOCUMENT ID: [id number] DARNELL IRAHETA MD at 1110 CC: [id number] DICTATION DATE: 07/27/19 0904 BOTTOM IRONER: 07/28/19 0040 DIS IN 07/27/19 [address] [place] [address]
== END 2019-07-27 13:45 | disposition home or self-care (01) ==
LOC: OBSVTIME → D.ER 14:36 → D.OPS 14:36 → OBSVTIME 16:13 → D.M2 16:13 → D.ER 16:13 → D.M2 16:13 → D.ER 16:38 → EDSTATUS 07-27 12:00 → D.M2 07-27 13:45 → D.OPS 07-27 13:45
PROVIDERS: Family Medicine; ATTEND Internal Medicine Interventional Cardiology
DX: I25.110 Atherosclerotic heart disease of native coronary artery with unstable angina pectoris (principal); I10 Essential (primary) hypertension; E78.5 Hyperlipidemia, unspecified; E11.9 Type 2 diabetes mellitus without complications
CPT/HCPCS: 93458; 93571; 93572; C9600 ×2

== ENCOUNTER 2020-04-05 13:56 | Inpatient (IN) | payer MEDICARE, MEDICAID ==
[~2020-04-05] VITALS: Ht 177.8 cm; Wt 74.8 kg
--- NOTE | ~2020-04-05 | HEMODYNAMI ---
PATIENT:GARFIELD MÁRQUEZ MEDICAL RECORD: [id number] : 57 [id number] ADMISSION DATE: 04/06/20 Generatedon:04/07/20209:48 Patient name: GARFIELD MÁRQUEZ Patient #: [id number] SSN: [id number] : 1955 Date of study: 04/07/2020 Page: Of Hemodynamic Procedure Report Patient Data Patient Demographics Procedure consent was obtained First Name: GARFIELD Gender: Male Last Name: WILLI : 1955 [facility] Initial: B Age: 64 year(s) Patient #: [id number] Race: SSN: [id number] Additional ID: [id number] Contact details Address: [address] [facility] State: [place] City: [place] Zip code: [address] Past Medical History Allergies Allergen Reaction Date Comments Reported Morphine 05/11/2016 Morphine 04/30/2019 Other allergy 07/27/2019 morphine Morphine 04/07/2020 Admission Admission Data Admission Date: 04/06/2020 Admission Time: 17:57 Arrival Date: 04/07/2020 Arrival Time: 0:00 Room #: [facility] Height (in.): 70 BSA: 1.93 (m2) Height (cm.): 177.8 BMI: 23.72 (kg/m2) Weight (lbs.): 165.35 Weight (kg.): 75 Medications upon Admission Medications Dosage Times Administered Last Remarks per Delivery Day Date and Time Clopidogrel Current Diagnosis Diagnosis Description Unstable angina Lab Results Lab Result Date: 04/07/2020 Lab Result Time: 0:00 Biochemistry Name Units Result Min Max Creatinine mg/dl 1 --(--*-)-- 0.6 1.3 eGFR ml/min 79.86768 *-(----)-- 90 120 NONAFRICAN CBC Name Units Result Min Max Hematocrit % 42.7 --(*---)-- 42 54 Hemoglobin g/dl 14.2 --(*---)-- 13.5 17.5 Procedure Procedure Types Cath Procedure Diagnostic Procedure [facility] w/Coronaries Sedation Charges Moderate Sedation up to 30 minutes PCI Procedure Coronary Stent Coronary Stent Initial PTCA PTCA Initial Hemochron ACT Test Procedure Description Procedure Date Procedure Date: 04/07/2020 Procedure Start Time: 9:11 Procedure End Time: 9:43 Procedure Staff Name Function William Bellamy MD Performing Physician Aviva Suarez RT Monitor Juliana Thomason RT Scrub Sharon Wall RN Nurse Procedure Data Cath Procedure Fluoroscopy Diagnostic fluoroscopy Total fluoroscopy Time: 7.6 time: 7.6 min min Diagnostic fluoroscopy Total fluoroscopy dose: dose: 1062 mGy 1062 mGy Contrast Material Contrast Material Type Amount (ml) Isovue 300 98 Entry Location Entry Primary Successful Side Size Upsize Upsize Entry Closure Wesley ccessful Closure Location (Fr) 1 (Fr) 2 (Fr) Remarks Device Remarks Radial Right 6 Fr Mechanical artery Short Compression Estimated blood loss: 10 ml Diagnostic catheters Device Type Used For End Catheter Placement DIAGNOSTIC [place] 110cm 5 Procedure Fr catheter ([id number]) Procedure Complications No complications Procedure Medications Medication Administration Route Dosage 0.9% NaCl I.V. 100 ml/hr Oxygen etCO2 Nasal cannula 2 l/min Lidocaine 2% added to field 20 Heparin Flush Bag added to field 2 bags (1000units/500ml NS) Radial Cocktail added to field 1 syringe (Verapamil 2mg/Nitro 400mcg/Heparin 1500units) Versed I.V. 1 mg Heparin Bolus I.V. 4000 units Heparin Bolus I.V. 2000 units Nitroglycerin IC/IA I.C. 200 mcg Hemodynamics Rest BSA: 1.93 (m2) HGB: 14.2 (g/dl) O2 Consumption: Estimated: 210.55 (ml/min) O2 Co nsumption indexed: Estimated:109.09 (ml/min/m) Heart Rate: 49 (bpm) Pressure Samples Time Site Value (mmHg) Purpose Heart Use Rate(bpm) 9:14 LV 111/-9,9 Snapshot 58 Gradients Valve Time Site Site Mean SEP/DFP Peak To Heart Use 1 2 (mmHg) (sec/min) Peak Rate (mmHg) (bpm) Aortic 9:15 LV AO 58 Snapshots Pre Cath Intra NCS Post Cath Vital Signs Time Heart Resp SPO2 etCO2 NIBP (mmHg) Rhythm Pain Sedation Rate (ipm) (%) (mmHg) Status Level (bpm) 8:57:03 52 12 98 27.6 141/78(100) SB 0 (11) 10(A) , No pain 9:01:19 53 10 97 8.2 136/77(110) SB 0 (11) 10(A) , No pain 9:06:18 48 14 99 39.5 Measuring SB 0 (11) 10(A) , No pain 9:06:20 48 14 99 38.7 124/71(95) SB 0 (11) 10(A) , No pain 9:10:40 50 13 99 26.1 127/69(112) SB 0 (11) 9(A) , No pain 9:14:54 59 13 98 36.5 108/58(88) SB 0 (11) 9(A) , No pain 9:19:06 55 13 96 38.8 122/69(103) SB 0 (11) 9(A) , No pain 9:23:24 55 12 97 39.5 112/67(93) SB 0 (11) 9(A) , No pain 9:27:40 54 13 97 38.8 121/64(103) SB 0 (11) 9(A) , No pain 9:31:56 54 12 98 38.8 121/69(98) SB 0 (11) 9(A) , No pain 9:36:13 56 14 98 37.3 119/69(94) SB 0 (11) 10(A) , No pain 9:40:28 57 10 98 31.3 130/73(104) SB 0 (11) 10(A) , No pain Medications Time Medication Route Dose Verified Delivered Reason Note s Effectiveness by by 8:55:59 0.9% NaCl I.V. 100 Norred Sharon used for ml/hr Josesito Wall warp spinner 8:56:05 Oxygen etCO2 2 l/min Norred Sharon used for Nasal Josesito Wall procedure cannula RN 8:56:12 Lidocaine 2% added 20ml Norred Norred for local to vial Josesito Bellamy MD anesthetic field 8:56:17 Heparin Flush added 2 bags Norred Norred used for Bag to Josesito Bellamy MD procedure (1000units/500ml field NS) 8:56:22 Radial Cocktail added 1 Norred Norred used for (Verapamil to syringe Josesito Bellamy MD procedure 2mg/Nitro field 400mcg/Heparin 1500units) 9:07:27 Versed I.V. 1 mg Norred Sharon for sedation Josesito Wall RN 9:19:10 Heparin Bolus I.V. 4000 Norred Sharon for veri fied units Josesito Wall anticoagulation with RN William 9:34:12 Heparin Bolus I.V. 2000 Norred Sharon for units Josesito Wall anticoagulation RN 9:36:36 Nitroglycerin I.C. 200 mcg William Sharon for IC/IA Josesito Wall vasodilation metal furrer Log Time Note 8:20:54 Juliana Thomason RT(R) sent for patient. Start room use. 8:21:53 Informed consent obtained and on chart 8:24:44 Procedure Status Urgent Heart Cath (IP). 8:24:47 Time tracking: Regular hours (M-F 7:00 - 5:00) 8:24:51 Plan of Care:Hemodynamics will remain stable., Cardiac rhythm will remain stable., Comfort level will be maintained., Respiratory function will remain adequate., Patient/ family verbilizes understanding of procedure., Procedure tolerated without complication., Recovers from procedure without complications.. 8:24:56 Full Disclosure recording started 8:25:02 H&P Date Dictated: 04/07/2020 Within 30 days and on chart.. 8:25:15 Patient allergic to Morphine 8:25:20 Is the patient allergic to Iodine/contrast media? No. 8:25:22 Was the patient premedicated? N/A 8:26:53 Is patient on blood thinner?Yes 8:26:56 ACC The patient was administered the following blood thiners within the last 24 hours: ACCPlavix 8:27:16 Patient diabetic? Yes. 8:27:17 If diabetic: On Metformin? Yes 8:27:26 If on Metformin: Last Dose? 04/04/2020 8:28:03 Stress Test: no; N/A ? 8:30:04 Patient Height : 70 inches 8:30:07 Patient Weight : 165.35 lbs 8:30:16 Current Diagnosis : Unstable angina 8:33:17 Lab Result : Creatinine 1 mg/dl 8:33:17 Lab Result : eGFR NONAFRICAN 79.48864 ml/min 8:33:17 Lab Result : Hemoglobin 14.2 g/dl 8:33:17 Lab Result : Hematocrit 42.7 % 8:33:31 Diagnostic Cath Status : Urgent 8:36:35 Risk of Mortality: 0.1 8:36:38 Risk of blood transfusion: 0.1 8:36:40 Risk of AFTAB: 0.1 8:47:47 Snore? Yes 8:47:48 Sleep apnea? Yes 8:47:59 Dentures? No ? 8:48:07 Patient received from Med II to CCL 1 Alert and oriented. Tansferred to table in Supine position. 8:48:08 Warm blankets applied on for patient comfort. 8:48:09 Correct patient and procedure confirmed by team. 8:48:10 ECG and BP/O2 sat monitors applied to patient. 8:48:21 Pre-procedure instructions explained to patient. 8:48:24 Family in patients room. 8:48:25 Patient NPO since Midnight. 8:55:48 Vital chart was started 8:55:59 0.9% NaCl 100 ml/hr I.V. was administered by Sharon Wall RN; used for procedure; Verbal order read back and verified. 8:56:05 Oxygen 2 l/min etCO2 Nasal cannula was administered by Sharon Wall RN; used for procedure; Verbal order read back and verified. 8:56:12 Lidocaine 2% 20ml vial added to field was administered by William Bellamy MD; for local anesthetic; Verbal order read back and verified. 8:56:17 Heparin Flush Bag (1000units/500ml NS) 2 bags added to field was administered by William Bellamy MD; used for procedure; Verbal order read back and verified. 8:56:22 Radial Cocktail (Verapamil 2mg/Nitro 400mcg/Heparin 1500units) 1 syringe added to field was administered by William Bellamy MD; used for procedure; Verbal order read back and verified. 9:03:05 Arrival Date: 04/07/2020 12:00:00 AM 9:04:19 Baseline sample Acquired. 9:04:26 Rhythm: sinus bradycardia 9:04:32 9:04:38 Previous problem with sedation/anesthesia? No ? 9:04:42 Previous problem with sedation/anesthesia? No ? 9:04:53 Deviated septum? Unknown 9:04:59 Opens mouth fully? Yes 9:05:02 Sticks out tongue? Yes 9:05:04 Airway obstruction? Unknown ? 9:05:09 Airway obstruction? No ? 9:06:04 Pre procedure: right dorsailis pedis pulse 1+ Palpable, but thready & weak; easily obliterated 9:06:18 IV patent on arrival in left forearm with 0.9% NaCl at [facility] 9:06:22 Lab results completed and on chart. 9:06:27 Physician arrived 9:06:28 --------ALL STOP TIME OUT------ 9::29 Final Timeout: patient, procedure, and site verified with staff and physician. All members of the team are in agreement. 9:06:31 Right Radial & Right Groin site verified by team. 9:06:37 Fire Safety Assessment: A--An alcohol-based skin anteseptic being used preoperatively., C--Open oxygen or nitrous oxide is being used., D--An ESU, laser, or fiber-optic light is being used. 9:06:41 Physical assessment completed. ASA score P 2 - A patient with mild systemic disease as per William Bellamy MD. 9:06:48 2) 60-89 Mildly reduced kidney function, and other findings (as for stage 1) point to kidney disease. 9:06:52 Maximum allowable contrast dose (3.7 X eGFR X 0.75)222 ml. 9:07:05 Sedation plan: IV Moderate Sedation Medication:Versed, Fentanyl 9:07:12 Use device set Radial Dx or PCI 9:07:14 ACIST Syringe (67385) opened to sterile field. 9:07:15 Medline Cath Pack ([id number]) opened to sterile field. 9:07:16 Bag Decanter () opened to sterile field. 9:07:16 ACIST Hand Control (21637) opened to sterile field. 9:07:17 ACIST Manifold (27790) opened to sterile field. 9:07:19 MBrace Wrist Support ([id number]) opened to sterile field. 9:07:19 Tegaderm 4 x 4 (1626W) opened to sterile field. 9:07:21 EMERALD Guide Wire (502-958) opened to sterile field. 9:07:24 SHEATH 6FR RAIN (4668129) opened to sterile field. 9:07:27 Versed 1 mg I.V. was administered by Sharon Wall RN; for sedation; Verbal order read back and verified. 9:08:20 Procedure started. 9:08:22 Zero performed for pressure channel P1 9:11:28 Local anesthetic to right radial artery with Lidocaine 2% by William Bellamy MD.INITIAL ACCESS ONLY 9:12:21 A 6 Fr Short sheath was inserted into the Right Radial artery 9:12:33 A DIAGNOSTIC [place] 110cm 5 Fr catheter (431970) was advanced over the wire and used for Procedure. 9:13:59 Injector settings: Ml/sec: 12, Volume: 8, 9:14:02 LV gram done using VALADEZ 9:14:18 LV hemodynamics recorded. 9:14:49 EF : 50 % 9:15:07 RCA angiography performed. 9:15:56 Injector settings: Ml/sec: 3, Volume: 6, 9:16:38 LCA angiography performed. 9:16:43 Injector settings: Ml/sec: 3, Volume: 6, 9:18:29 INFLATOR Merit BasixCompak (UP4299) opened to sterile field. 9:18:41 GUIDE 6FR ART 3.5 catheter ([id number]) opened to sterile field. 9:19:07 Catheter removed. 9:19:09 Proceeding to intervention. 9:19:10 Heparin Bolus 4000 units I.V. was administered by Sharon Wall RN; for anticoagulation; verified with Dr. Thomas Verbal order read back and verified. 9:19:20 ACC Pre-intervention HENRIQUE Flow is 3. 9:19:38 Pre PCI Site: [place] mRCA has 80% stenosis. 9:20:32 COPILOT Valve Control (0561242) opened to sterile field. 9:21:09 6 Fr ART3.5 guide catheter was inserted over the wire 9:21:43 BMW 190cm [place] 2 J wire (6391799W) opened to sterile field. 9:22:47 XLA924 wire advanced. 9:25:45 Inflate balloon Inflation number: 1 A Mozec Rx 3.0 x 20 balloon was prepped and advanced across the Mid RCA , then inflated to 10 BRAYAN for 0:11 (min:sec) . 9:25:55 Balloon removed over the wire. 9:26:39 Wire removed. 9:26:40 Guide catheter removed. 9:26:54 GUIDE 5FR EBU 3.5 catheter ([id number]) opened to sterile field. 9:27:55 ACC Post-intervention HENRIQUE Flow is 3. 9:28:05 Post PCI Site: [place] mRCA has 0% stenosis. 9:28:13 6 Fr EBU3.5 guide catheter was inserted over the wire 9:29:48 MKO082 wire advanced. 9:30:29 ACC Pre-intervention HENRIQUE Flow is 3. 9:31:35 Pre PCI Site: [place] dLAD has 99% stenosis. 9:32:08 Wire advanced across lesion. 9:34:12 Heparin Bolus 2000 units I.V. was administered by Sharon Wall RN; for anticoagulation; Verbal order read back and verified. 9:34:13 Place stent Inflation Number: 1 A KLAUDIA RX 2.0 x 22 stent ([id number]) was prepped and advanced across the Dist LAD . The stent was deployed at 12 BRAYAN for 0:00 (min:sec) . 9:35:51 Stent catheter was removed intact over wire. 9:36:36 Nitroglycerin IC/IA 200 mcg I.C. was administered by Sharon Wall RN; for vasodilation; Verbal order read back and verified. 9:37:32 Wire removed. 9:37:34 Guide catheter removed. 9:37:42 ZEPHYR REGULAR TR BAND (755120) opened to sterile field. 9:38:16 ACC Post-intervention HENRIQUE Flow is 3. 9:38:27 Post PCI Site: [place] dLAD has 0% stenosis. 9:38:35 Procedure ended.(Physican Out) 9:38:52 Sheath removed intact; hemostasis achieved with Mechanical Compression to the Right Radial artery. 9:39:06 Contrast amount:Isovue 300 98ml. 9:39:10 Maximum allowable dose exceeded? No. 9:39:19 Fluoroscopy time 07.60 minutes. 9:39:27 Flurop Dose total: 1062 9:39: Fluoroscopy dose: 1062 mGy 9:39:44 Dose Area Product 12902 mGy/cm. 9:39:47 Sharps counted by scrub and verified by R.N. 9:39:52 [place] band inflated with 10cc of air. 9:39:55 Insertion/operative site no bleeding no hematoma. 9:40:10 Post right radial artery:stable 9:40:16 Post-procedure physical assessment completed. ASA score P 2 - A patient with mild systemic disease as per William Bellamy MD. 9:40:22 Post procedure rhythm: unchanged. 9:40:27 Estimated blood loss: 10 ml 9:40:29 Post procedure instruction explained to patient.Patient verbalizes understanding. 9:40:31 Patient needs reinforcement of post procedure teaching. 9:42:24 Procedure type changed to Cath procedure, Diagnostic procedure, LHC, [facility] w/Coronaries, Sedation Charges, Moderate Sedation up to 30 minutes, PCI procedure, Coronary Stent, Coronary Stent Initial, PTCA, PTCA Initial, Hemochron ACT Test 9:42:27 Procedure and supply charges have been captured, reviewed, submitted and are correct. 9:42:36 Procedure Complication : No complications 9:42:40 Vital chart was stopped 9:42:44 [facility] Findings: MVD- PCI performed (see procedure note) 9:42:47 Operative report dictated upon procedure completion. 9:42:48 See physician's report for complete and final results. 9:42:52 Report given to Med II. 9:43:09 Procedure ended. 9:43:09 Full Disclosure recording stopped 9:43:21 ACC-PCI Only Patient was given prescriptions, or instructed by William Bellamy MD to start/continue the following medications upon discharge: Plavix 9:43:24 End room use (Document Last) 9:43:35 ACT drawn and resulted at >400- out of range seconds. (normal therapeutic range 180-240 seconds). Intervention Summary Intervention Notes Time ActionType Lesion and Equipment Used Action# Pressure Duration Attributes 9:25:45 Inflate Mid RCA Mozec Rx 3.0 x 1 10 00:11 balloon 20 balloon 9:34:13 Place stent Dist LAD KLAUDIA RX 2.0 x 1 12 00:00 22 stent ([id number]) Device Usage Item Name Manufacture Quantity Catalog Number Hospital Part Current M inimal Lot# / Charge Number Stock Stock Serial# Code ACIST Syringe Acist 1 57941 250107 344057 546610 2 0 (80006) Medical Systems Inc Medline Cath Medline 1 [id number] 015466 20809 337010 5 Pack ([id number]) Bag Decanter Microtek 1 356240 73557 842757 5 () Medical Inc. ACIST Hand Acist 1 25261 904957 872971 031660 5 Control Medical (52948) Systems Inc ACIST Manifold Acist 1 35635 291172 191355 421021 5 (77413) Medical Systems Inc MBrace Wrist Advanced 1 140-0250-00 035634 22238 015702 5 Support Vascular (091731671) Dynamics Tegaderm 4 x 4 3M 1 1626W 124869 895845 311006 5 (1626W) EMERALD Guide Cardinal 1 502-455 521050 058556 124919 5 Wire (502-455) Health SHEATH 6FR Cardinal 1 7600629 327749 3584421 872569 5 RAIN (7476435) Health DIAGNOSTIC Terumo 1 40-7333 374823 288915 104397 5 [place] 110cm 5 Fr catheter (365529) INFLATOR Merit Merit 1 JS6246 160415 984171 091044 1 5 CerahelixriRealD Medical (TS4779) GUIDE 6FR ART Hurricane 1 [id number] 293230 983410 145125 0 3.5 catheter Scientific (602666046) COPILOT Valve Cruz 1 5212847 702033 687715 750581 5 Control Vascular (8431804) BMW 190cm Cruz 1 [id number] 552015 35745 806489 5 [place] 2 J Vascular wire (0083086X) Mozec Rx 3.0 x Cardinal 1 [id number] 165774 72475 933081 5 20 balloon Health GUIDE 5FR EBU Medtronic 1 [id number] 874529 187629 818162 1 3.5 catheter (KH4APN38) KLAUDIA RX 2.0 x Medtronic 1 [id number] 746628 6399074 725247 5 [id number] 22 stent ([id number]) ZEPHYR REGULAR Cardinal 1 271229 052140 5929002 451914 5 TR [facility] (292935) Signature Audit [place] Stage Time Signature Unsigned Intra-Procedure 04/07/2020 Aviva 9:47:40 AM Erick RT(R) (CV) Intra-Procedure 04/07/2020 Sharon Wall 9:48:10 AM RN Intra-Procedure 04/07/2020 William Bellamy MD 9:48:56 AM [id number] [place] [address]
[~2020-04-05 13:56] MED LIST changes: +PRAVASTATIN SOD10 MG PO
[2020-04-05 14:42] LABS: BASOPHILS 0.2 % (0-2); HEMATOCRIT 44.5 % (42.0-54.0); HEMOGLOBIN 15.1 g/dL (13.5-17.5); IMMATURE GRANULOCYTES 0.3 % (0-5); LYMPHOCYTES 25.9 % (15-50); MCH 31.3 pg (26.0-34.0); MCHC 33.9 g/dL (31.0-37.0); MCV 92.3 fL (80.0-100.0); MEAN PLATELET VOLUME 10.1 fL (7.4-10.4); MONOCYTES 4.8 % (2-11); NEUTROPHILS 67.8 % (40-80); PLATELET COUNT 238 10x3/uL (130-400); RBC 4.82 10x6/uL (4.20-6.10); RDW 13.7 % (11.5-14.5); WBC 10.4 10x3/uL (4.8-10.8)
[2020-04-05 14:43] LABS: CALC OSMOLALITY 278 mosm/kg (275-300); CALCIUM 8.9 mg/dL (8.5-10.1); CARBON DIOXIDE 27.3 mmol/L (21.0-32.0); CHLORIDE - SERUM 105 mmol/L (98-107); CREATININE - SERUM 1.1 mg/dL (0.6-1.3); GLUCOSE 113 mg/dL (74-106); SODIUM 139 mmol/L (136-145); UREA NITROGEN 12 mg/dL (7-18); eGFR NON AFRICAN AMERICAN 72 mL/min (90-120)
[2020-04-05 15:00] LABS: ALBUMIN 3.7 g/dL (3.4-5.0); ALKALINE PHOSPHATASE 51 U/L (30-120); ALT (SGPT) 19 U/L (10-68); BILIRUBIN - TOTAL 0.54 mg/dL (0.2-1.3); CKMB 1.8 U/L (0.0-3.6); CREATINE KINASE 67 UL (21-232); MAGNESIUM - SERUM 2.1 mg/dL (1.8-2.4); PRO BNP 126 pg/mL (0-125); PROTEIN - SERUM 6.7 g/dL (6.4-8.2); TROPONIN-I < 0.017 ng/mL (0.000-0.060)
[2020-04-05 17:15] VITALS: BP 136/71
[2020-04-05 17:28] VITALS: BP 164/84
[2020-04-05 19:27] VITALS: BP 169/85
--- NOTE | 2020-04-05 19:49 | NUR ---
PT ARRIVED VIA STRETCHER FROM ER. NO DISTRESS NOTED.
[2020-04-05 22:01] VITALS: BP 160/86; BMI 23.6
[2020-04-06 00:30] VITALS: BP 137/70
--- NOTE | 2020-04-06 00:37 | NUR ---
FSBS AT 2046 HRS, 109. NO COVERGE NEEDED. SANDWICH GIVEN PER REQUEST. IV TO LFA WITH NS AT 50CC/HR. IV PATENT. VSS. SR PER CM HR 60. ALERT AND OREINTED TO PERSON,PLACE AND TIME. GABRIEL. ADMISSION ASSESSMENT, HISTORY AND HOME MED LIST COMPLETED AT 2208 HRS. DILAUDID 1MG, ZOFRAN 4MG SIVP GIVEN AT 2350 HRS FOR C/O CP AND MILD NAUSEA. PT CURRENTLY RESTING WITH EYES CLOSED. RESP EVEN AND REGULAR. SR UP X1, CALL LIGHT WITHIN REACH.
[2020-04-06 01:00] LABS: CKMB 1.9 U/L (0.0-3.6); CREATINE KINASE 65 UL (21-232); TROPONIN-I < 0.017 ng/mL (0.000-0.060)
--- NOTE | 2020-04-06 03:19 | NUR ---
PT RESTING WITH EYES CLOSED. RESP EVEN AND REGULAR. CALL LIGHT WITHIN REACH.
--- NOTE | 2020-04-06 04:12 | NUR ---
DILAUDID 1MG, ZOFRAN 4MG GIVEN SIVP FOR C/O CP 05/26 AND NAUSEA.
[2020-04-06 04:30] VITALS: BP 137/82
[2020-04-06 05:55] LABS: CKMB 1.9 U/L (0.0-3.6); CREATINE KINASE 64 UL (21-232); TROPONIN-I < 0.017 ng/mL (0.000-0.060)
--- NOTE | 2020-04-06 06:31 | NUR ---
VSS THROUGHOUT NIGHT. SB/SR PER CM. PT STATES IV DILAUDID BRINGS HIS CP DOWN TO A 3 OR /10/ NPO UNTIL SEEN BY CARDIOLOGY. NEEDS MET; WILL CONTINUE TO MONITOR.
[2020-04-06 10:26] VITALS: Ht 177.8 cm; Wt 74.8 kg
--- NOTE | 2020-04-06 11:36 | NUR ---
ECHO DONE AT BS.
--- NOTE | 2020-04-06 12:18 | NUR ---
URINE SPECIMEN COLLECTED AND TAKEN TO LAB. WILL MONITOR.
[2020-04-06 12:42] LABS: BILIRUBIN NEGATIVE (NEGATIVE); GLUCOSE NEGATIVE (NEGATIVE); KETONE NEGATIVE (NEGATIVE); NITRITE NEGATIVE (NEGATIVE); UROBILINOGEN NORMAL (NORMAL)
[2020-04-06 12:49] LABS: UDS - AMPHET NEGATIVE QUAL (NEGATIVE); UDS - BARB NEGATIVE QUAL (NEGATIVE); UDS - BENZO NEGATIVE QUAL (NEGATIVE); UDS - COCAINE NEGATIVE QUAL (NEGATIVE); UDS - OPIATE POSITIVE QUAL (NEGATIVE); UDS - PCP NEGATIVE QUAL (NEGATIVE); UDS - THC NEGATIVE QUAL (NEGATIVE)
[2020-04-06 15:11] VITALS: BP 149/78
[2020-04-06 17:55] VITALS: BP 129/80
[2020-04-06 20:00] VITALS: BP 142/73
[2020-04-07] VITALS: BP 133/67
--- NOTE | 2020-04-07 00:07 | NUR ---
INITIAL ROUNDS COMPLETED AT 1915 HRS. PT TALKING WITH GIRLFRIEND. NO DISTRESS NOTED. PT REQUESTING PAIN MEDS AT 1930 HRS FOR C/O CP. DILAUDID 1MG SIVP GIVEN. ASSSESSMENT COMPLETED AT 1935 HRS. VSS. SR PER CM HR 74. ALERT AND ORIENTED TO PERSON, PLACE AND TIME. GABRIEL. IV TO LFA SL. LUINGS DIMINISHED IN BASES BILAT. GABRIEL. PALPABLE PERIPHERAL PULSES. PM FSBS 149. NO COVERAGE NEEDED. PM MEDS GIVEN. PT TOOK HIBICLENS SHOWER AT 2200 HRS. DILAUDID 1MG SIVP GIVEN AT 2340 HRS. FOR C/O CP 03/26. PT CURRENTLY WATCHING TV. GIRLFRIEND AT BEDSIDE. CALL LIGHT WITHIN REACH.
--- NOTE | 2020-04-07 02:19 | NUR ---
WATCHING TV. NO DISTRESS NOTED. CALL LIGHT WITHIN REACH.
[2020-04-07 04:00] VITALS: BP 140/71
--- NOTE | 2020-04-07 04:15 | NUR ---
PT RESTING WITH EYES CLOSED. RESP EVEN AND REGULAR. CALL LIGHT WITHIN REACH.
--- NOTE | 2020-04-07 06:08 | NUR ---
VSS THROUGHOUT NIGHT. SR PER CM. PT STATES IV DILAUDID CONTROLLED HIS CP. NEEDS MET; WILL CONTINUE TO MONITOR.
[2020-04-07 06:22] LABS: HEMATOCRIT 42.7 % (42.0-54.0); HEMOGLOBIN 14.2 g/dL (13.5-17.5); LYMPHOCYTES 25.8 % (15-50); MCH 30.5 pg (26.0-34.0); MCHC 33.3 g/dL (31.0-37.0); MCV 91.6 fL (80.0-100.0); MEAN PLATELET VOLUME 9.9 fL (7.4-10.4); NEUTROPHILS 67.3 % (40-80); PLATELET COUNT 218 10x3/uL (130-400); RBC 4.66 10x6/uL (4.20-6.10); RDW 13.3 % (11.5-14.5); WBC 10.2 10x3/uL (4.8-10.8)
[2020-04-07 06:44] LABS: ALBUMIN 3.8 g/dL (3.4-5.0); ALKALINE PHOSPHATASE 52 U/L (30-120); ALT (SGPT) 22 U/L (10-68); BILIRUBIN - TOTAL 0.29 mg/dL (0.2-1.3); CALC OSMOLALITY 279 mosm/kg (275-300); CALCIUM 8.6 mg/dL (8.5-10.1); CARBON DIOXIDE 29.1 mmol/L (21.0-32.0); CHLORIDE - SERUM 105 mmol/L (98-107); GLUCOSE 105 mg/dL (74-106); POTASSIUM - SERUM 4.3 mmol/L (3.5-5.1); PROTEIN - SERUM 6.4 g/dL (6.4-8.2); SODIUM 140 mmol/L (136-145); eGFR NON AFRICAN AMERICAN 80 mL/min (90-120)
[2020-04-07 07:13] LABS: UREA NITROGEN 16 mg/dL (7-18)
--- NOTE | 2020-04-07 07:20 | NUR ---
RECIEVE REPORT. ALERT AND ORIENTED X4. UP AMBULATING IN ROOM. GAIT STEADY. CONSENTS SIGNED ON CHART FOR HOUSE DIRECTOR. DENIES ANY NEEDS. CONTINUE PLAN OF CARE AND SAFETY PRECAUTIONS.
[2020-04-07 09:13] VITALS: BP 139/75
--- NOTE | 2020-04-07 10:04 | NUR ---
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 ALERT AND ORIENTED X4. BP-132/72, O2-98%, HR-50 [place] ON TELEMETRY. PULSE +2 BILATERALLY. ZYTHROBAND RT RADIAL CLEAND DRY INTACT. FREE FROM BLEEDING. FREE FROM HEMATOMA. SPOUSE AT BEDSIDE. DENIES ANY NEEDS AT THIS TIME. CONTINUE PLAN OF CARE AND SAFETY PRECAUTIONS.
[2020-04-07 11:00] VITALS: BP 118/63
[2020-04-07] MEDS ORDERED: ISOSORBIDE MONO30 M1 PO (12:49)
--- NOTE | 2020-04-07 15:57 | NUR ---
ALERT AND ORIENTED X4. SITTING UP IN BED. RT WRIST ZYTHROBAND DEFLATED. REMAINS FREE FROM INJURY. FREE FROM HEMATOMA. DRESSING APPLIED TO RT WRIST. WRIST IMMOBILIZER ON. DC LT FA IV TIP INTACT. DISCHARGE INSTRUCTIONS GIVEN VERBALLY AND WRITTEN. DISCHARGE PAPERS SIGNED ON CHART. ESCORT TO RIDE VIA WHEELCHAIR. REMAINS FREE FROM INJURY.
--- NOTE | 2020-04-08 14:02 | EC ---
PATIENT:GARFIELD MÁRQUEZ DATE OF SERVICE: 04/06/20 SEX: M MEDICAL RECORD: [id number] DATE OF : [birth year] LOCATION:D.M2 D.211 AGE OF PATIENT: 64 ADMISSION DATE: 04/06/20 REFERRING PHYSICIAN: INTERPRETING PHYSICIAN: MARKEL BONILLA MD ECHOCARDIOGRAM REPORT ECHO CHARGES 4 ECHO COMPLETE Date: 04/06/20 CLINICAL DIAGNOSIS: CP ECHOCARDIOGRAPHIC MEASUREMENTS (adult normal given) AC root (d.<3.7cm) 2.6 cm LV Septum d (<1.2 cm> 1.5 cm Valve Excursion 1.5 cm LV Septum (systole) 2.0 cm Left Atria (s.<4.0cm> 3.9 cm LVPW d(<1.2cm) 1.4 cm RV (d.<2.3cm) 2.4 cm LVPW (sytole) 2.4 cm LV diastole(<5.6CM) 4.1 cm MV E-F(>70mm/sec) cm LV systole 1.8 cm LVOT Diameter 1.8 cm MV exc.(>10mm) cm Est.ejection fraction (50-75%) % DOPPLER: LVIT cm/sec A 45.0 cm/sec E 97.0 cm/sec LA cm/sec RVSP 39.3 mmHg LVOT 137 cm/sec AOP1/2T m/s Asc. Ao 154 cm/sec RVOT 65.0 cm/sec RA cm/sec PA 86.0 cm/sec AV Gradient Peak 9.5 mmHg AV Mean 4.7 mmHg AV Area 2.2 cm MV Gradient Peak 5.0 mmHg MV Mean 1.4 mmHg MV Area cm COMMENTS: Optical Design Engineer: Miguel Angel DURANOE Signal Helper: Marisol Bonilla TAPE# PACS Pericardial Effusion N DATE OF SERVICE: 04/06/2020 PROCEDURE: Transthoracic echocardiogram. FINDINGS: 1. Left ventricle shows mild left ventricular hypertrophy. Inflow characteristics consistent with diastolic dysfunction. Ejection fraction of 65%. 2. Left atrium is normal in size, shape, and function. 3. The aortic valve appears to be normal. ECHOCARDIOGRAM REPORT [id number] GARFIELD MÁRQUEZ 4. Mitral valve has mild mitral regurgitation. 5. Tricuspid valve has mild tricuspid regurgitation. RVSP is 39.3 mmHg. 6. Right ventricle is normal size, shape, and function. 7. Right atrium is normal size, shape, and structure and function. 8. Aortic valve shows mild sclerosis, trivial to mild aortic insufficiency. 9. Pulmonic valve is normal. 10. No pericardial effusion. TRANSINT:[id number] Voice Confirmation ID: [id number] DOCUMENT ID: [id number] MARKEL BONILLA MD at 1402 CC: [id number] DICTATION DATE: 04/07/20724 CHAIRMAN CEO: 04/07/20 1300 DIS IN 04/07/20 [facility] [address] [place] [address]
== END 2020-04-07 15:59 | disposition home or self-care (01) | DRG 247 ==
LOC: D.ER 13:56 → D.OPS 13:56 → D.M2 18:36 → EDSTATUS 18:54 → D.M2 04-06 17:57 → D.OPS 04-06 17:57 → D.M2 04-07 15:59
PROVIDERS: Emergency Medicine; Family Medicine; Internal Medicine Cardiovascular Disease; ADMIT Family Medicine; ATTEND Family Medicine
PROC: 027034Z Dilation of Coronary Artery, One Artery with Drug-eluting Intraluminal Device, Percutaneous Approach (ICD-10-PCS; principal; 2020-04-07 08:45)
PROC: B2151ZZ Fluoroscopy of Left Heart using Low Osmolar Contrast (ICD-10-PCS; 2020-04-07 08:45)
DX: I25.110 Atherosclerotic heart disease of native coronary artery with unstable angina pectoris (principal); F17.213 Nicotine dependence, cigarettes, with withdrawal; I10 Essential (primary) hypertension; E11.9 Type 2 diabetes mellitus without complications

== ENCOUNTER 2020-04-08 14:33 | Observation (INO) | payer MEDICARE, MEDICAID ==
[~2020-04-08] VITALS: Ht 177.8 cm; Wt 75.9 kg
[~2020-04-08 14:33] MED LIST changes: +ISOSORBIDE MONO30 M1 PO
[2020-04-08 14:57] LABS: BASOPHILS 0.2 % (0-2); HEMATOCRIT 47.3 % (42.0-54.0); HEMOGLOBIN 15.9 g/dL (13.5-17.5); IMMATURE GRANULOCYTES 0.4 % (0-5); LYMPHOCYTES 19.5 % (15-50); MCH 30.9 pg (26.0-34.0); MCHC 33.6 g/dL (31.0-37.0); MCV 91.8 fL (80.0-100.0); MEAN PLATELET VOLUME 10.1 fL (7.4-10.4); MONOCYTES 5.8 % (2-11); NEUTROPHILS 73.1 % (40-80); PLATELET COUNT 216 10x3/uL (130-400); RBC 5.15 10x6/uL (4.20-6.10); RDW 13.5 % (11.5-14.5); WBC 11.3 10x3/uL (4.8-10.8)
[2020-04-08 15:10] LABS: APTT 29.9 SECONDS (22.8-39.4); INR 1.01 (0.85-1.17); PROTIME 13.3 SECONDS (11.6-15.0)
[2020-04-08 15:11] LABS: CALC OSMOLALITY 278 mosm/kg (275-300); CALCIUM 9.2 mg/dL (8.5-10.1); CHLORIDE - SERUM 104 mmol/L (98-107); CREATININE - SERUM 1.1 mg/dL (0.6-1.3); GLUCOSE 106 mg/dL (74-106); POTASSIUM - SERUM 4.3 mmol/L (3.5-5.1); SODIUM 139 mmol/L (136-145); UREA NITROGEN 15 mg/dL (7-18); eGFR NON AFRICAN AMERICAN 72 mL/min (90-120)
[2020-04-08 15:27] LABS: ALKALINE PHOSPHATASE 53 U/L (30-120); ALT (SGPT) 20 U/L (10-68); BILIRUBIN - TOTAL 0.55 mg/dL (0.2-1.3); CKMB 1.9 U/L (0.0-3.6); CREATINE KINASE 54 UL (21-232); PROTEIN - SERUM 7.5 g/dL (6.4-8.2); TROPONIN-I 0.035 ng/mL (0.000-0.060)
[2020-04-08 16:11] VITALS: BP 181/88
[2020-04-08 16:47] VITALS: BP 159/81
[2020-04-08 18:23] VITALS: BP 159/90; Ht 177.8 cm; Wt 75.9 kg
--- NOTE | 2020-04-08 19:00 | NUR ---
PATIENT IS RESTING COMFORTABLY IN BED. HE IS ALERT AND ORIENTED. CALL LIGHT IS WITH IN REACH.
[2020-04-08 20:00] VITALS: BP 158/88
[2020-04-08 21:13] LABS: BILIRUBIN NEGATIVE (NEGATIVE); GLUCOSE NEGATIVE (NEGATIVE); KETONE NEGATIVE (NEGATIVE); NITRITE NEGATIVE (NEGATIVE); UROBILINOGEN NORMAL (NORMAL)
[2020-04-08 22:02] LABS: CKMB 2.6 U/L (0.0-3.6); CREATINE KINASE 64 UL (21-232); TROPONIN-I 0.035 ng/mL (0.000-0.060)
--- NOTE | 2020-04-08 22:20 | NUR ---
PATIENT ACCIDENTLY PULLED OUT IV IN LAC. STOPPED IV FLUIDS.
--- NOTE | 2020-04-08 22:43 | NUR ---
NEW [address] IN RIGHT FOREARM.
[2020-04-09] VITALS: BP 161/88
[2020-04-09 04:00] VITALS: BP 159/83
--- NOTE | 2020-04-09 04:17 | NUR ---
PATIENT IS RESTING COMFORTABLY IN BED, BUT HAS NOT SLEPT MUCH. HE HAS HAD DILUADID 2 MG 3 TIMES ON THIS SHIFT FOR CHEST PAIN. HIS IS IN THE ROOM WITH HIM. HE NEEDS TO HAVE THE MONOGRAM AND LETTER PASTER CALL HIS DATABASE SUPPORT BEFORE 0900, TO LET THEM KNOW HEIS IN THE HOSPITAL.
[2020-04-09 07:11] LABS: BASOPHILS 0.2 % (0-2); EOSINOPHILS 3.2 % (0-7); HEMATOCRIT 42.3 % (42.0-54.0); IMMATURE GRANULOCYTES 0.2 % (0-5); LYMPHOCYTES 30.4 % (15-50); MCH 30.8 pg (26.0-34.0); MCHC 33.1 g/dL (31.0-37.0); MCV 93.2 fL (80.0-100.0); MEAN PLATELET VOLUME 10.7 fL (7.4-10.4); MONOCYTES 7.2 % (2-11); NEUTROPHILS 58.8 % (40-80); PLATELET COUNT 235 10x3/uL (130-400); RBC 4.54 10x6/uL (4.20-6.10); RDW 13.7 % (11.5-14.5); WBC 8.8 10x3/uL (4.8-10.8)
[2020-04-09 07:44] LABS: ALBUMIN 3.5 g/dL (3.4-5.0); ALKALINE PHOSPHATASE 54 U/L (30-120); ALT (SGPT) 18 U/L (10-68); CALC OSMOLALITY 282 mosm/kg (275-300); CALCIUM 8.8 mg/dL (8.5-10.1); CARBON DIOXIDE 29.4 mmol/L (21.0-32.0); CHLORIDE - SERUM 106 mmol/L (98-107); CKMB 3.1 U/L (0.0-3.6); CREATINE KINASE 78 UL (21-232); GLUCOSE 106 mg/dL (74-106); POTASSIUM - SERUM 4.4 mmol/L (3.5-5.1); PROTEIN - SERUM 6.6 g/dL (6.4-8.2); SODIUM 141 mmol/L (136-145); TROPONIN-I 0.029 ng/mL (0.000-0.060); UREA NITROGEN 17 mg/dL (7-18); eGFR NON AFRICAN AMERICAN 80 mL/min (90-120)
[2020-04-09 09:00] VITALS: BP 174/89
[2020-04-09 11:00] VITALS: BP 135/75
--- NOTE | 2020-04-09 13:18 | MORECARE ---
CASE MANAGEMENT DISCHARGE SUMMARY PATIENT: GARFIELD MÁRQUEZ UNIT: [id number] ADM DATE: 04/08/20 AGE: 64 : 57 SEX: M ROOM/BED: D.9060 AUTHOR: PARDEEP VICTOR PHYSICIAN: REFERRING PHYSICIAN: ROSHAN OCONNOR MD DATE OF SERVICE: 04/09/20 Discharge Plan Patient Name: GARFIELD MÁRQUEZ Facility: [facility]:[place] : 1955 Planned Disposition: Home Anticipated Discharge Date: Discharge Date: Expected LOS: Initial Reviewer: [email or web address] Initial Review Date: 04/09/2020 Generated: 04/09/20 2:17 pm DCP- Discharge Planning Updated by [email or web address]: Leanne Weir on 04/09/20 12:[address] Patient Name: GARFIELD MÁRQUEZ Admission Status: ER Accout number: [id number] Admission Date: 04-08-2020 : 1955 Admission Diagnosis: Attending: ELVIN, Current LOS: 1 Anticipated DC Date: Planned Disposition: Home Primary Insurance: [employer] MEDICARE ADV Discharge Planning Comments: CM met with patient and his friend in the room. I gave him a SALAZAR and explained. He states his street address is [address] [place] [address]. His PCP is Dr. Carolina. He does get his medicines as prescribed and states his insurance pays for his medications. States he rents a place from his friend's son, but plans on finding a new place to live. States his living situation at this time is not "good". Denies discharge needs. Human Resources Benefits Administrator: Leanne Weir DCP- Discharge Planning Updated by [email or web address]: Leanne Weir on 04/09/20 7:[address] I was called to patient's room per patient to fax to his tactical response group officer proof that patient is in the hospital. I faxed notice of patient in the hospital to officer Guilherme Brower at [phone]. External Providers External Provider: OTHER-OTHER Next Contact Date: Service Request Date: Service Type: Resolution: Reviewer: Comments: Coverage Notice Reviewer: [id number] - Leanne Weir Notice Issued Date-Time: 04/09/2020 13:09 Notice Type: Medicare Outpatient Observation Notice Notice Delivered To: Patient Relationship to Patient: Self Hand Lacer Name: Delivery Method: HAND - Hand Delivered Moon Days: Prior Verbal Notification: Recipient Understood Notice: Yes Recipient Signature: Yes Med Rec Note Co-signed by Attending: Coverage Notice Comment: MARTIN explained, signed, given, copy placed in MR Patient Name: GARFIELD MÁRQUEZ Page [id number] at 1318 All edits/amendments must be made on the electronic document DICTATION DATE: 04/09/20 1317 CAMPUS SECURITY OFFICER: KATE 04/09/20 1317 RPT#: [id number] DC DATE: STATUS: ADM IN [facility] [address] [place] [address] END OF REPORT
--- NOTE | 2020-04-09 14:56 | NUR ---
SPOKE TO DAIANA NICHOLE FOR DR. PERLA. WILL ORDER CTA CAROTID AND KEEP OVER NIGHT.
[2020-04-09 15:00] VITALS: BP 135/78
--- NOTE | 2020-04-09 19:15 | NUR ---
PATIENT IS RESTING COMFORTABLY IN BED. PATIENT IS ALERT AND ORIENTED. NO COMPLAINTS AT THIS TIME. STILL HAVING CHEST PAIN, IN WHICH WE WILL CONTINUE TO MONITOR.
[2020-04-09 20:00] VITALS: BP 158/78
[2020-04-10] VITALS: BP 150/85
[2020-04-10 04:00] VITALS: BP 142/79
--- NOTE | 2020-04-10 04:03 | NUR ---
PATIENT SLEPT BETTER LAST NIGHT. HE HAS ONLY HAD DILUADID 2 TIMES OVER THE NIGHT FOR CHEST PAIN. THE CHEST PAIN SEEMS MUSCULOSKELETOL, BECAUSE IT HURTS MORE WHEN I PRESS DOWN ON HIS CHEST. WE WILL CONTINUE TO MONITOR.
[2020-04-10 07:22] LABS: ALBUMIN 3.7 g/dL (3.4-5.0); ALKALINE PHOSPHATASE 40 U/L (30-120); ALT (SGPT) 19 U/L (10-68); BILIRUBIN - TOTAL 0.47 mg/dL (0.2-1.3); CALC OSMOLALITY 279 mosm/kg (275-300); CALCIUM 8.6 mg/dL (8.5-10.1); CARBON DIOXIDE 32.3 mmol/L (21.0-32.0); CHLORIDE - SERUM 105 mmol/L (98-107); GLUCOSE 111 mg/dL (74-106); PROTEIN - SERUM 6.4 g/dL (6.4-8.2); SODIUM 140 mmol/L (136-145); UREA NITROGEN 13 mg/dL (7-18); eGFR NON AFRICAN AMERICAN 80 mL/min (90-120)
[2020-04-10 07:42] LABS: BASOPHILS 0.3 % (0-2); HEMATOCRIT 41.4 % (42.0-54.0); HEMOGLOBIN 13.5 g/dL (13.5-17.5); IMMATURE GRANULOCYTES 0.2 % (0-5); LYMPHOCYTES 24.1 % (15-50); MCH 30.1 pg (26.0-34.0); MCHC 32.6 g/dL (31.0-37.0); MCV 92.4 fL (80.0-100.0); MEAN PLATELET VOLUME 10.7 fL (7.4-10.4); MONOCYTES 8.4 % (2-11); PLATELET COUNT 212 10x3/uL (130-400); RBC 4.48 10x6/uL (4.20-6.10); RDW 13.6 % (11.5-14.5); WBC 8.7 10x3/uL (4.8-10.8)
[2020-04-10 08:11] VITALS: BP 163/79
[2020-04-10 12:13] VITALS: BP 165/72
--- NOTE | 2020-04-10 14:28 | NUR ---
TELEMETRY SR. UP AMBULATING HALLWAY. GAIT STEADY.
--- NOTE | 2020-04-10 16:48 | NUR ---
IV AND TELEMETRY DCD. DC PLANS GIVEN. UNDERSTANDING VOICED.
--- NOTE | 2020-04-11 11:38 | MORECARE ---
CASE MANAGEMENT DISCHARGE SUMMARY PATIENT: GARFIELD MÁRQUEZ UNIT: [id number] ADM DATE: 04/08/20 AGE: 64 : 57 SEX: M ROOM/BED: D.7700 AUTHOR: PARDEEP VICTOR PHYSICIAN: REFERRING PHYSICIAN: ROSHAN OCONNOR MD DATE OF SERVICE: 04/11/20 Discharge Plan Patient Name: GARFIELD MÁRQUEZ Facility: [facility]:[place] : 1955 Planned Disposition: Home Anticipated Discharge Date: Discharge Date: 04/10/2020 Expected LOS: 0 Initial Reviewer: [email or web address] Initial Review Date: 04/09/2020 Generated: 04/11/20 12:37 pm DCP- Discharge Planning Updated by [email or web address]: Leanne Weir on 04/09/20 12:[address] Patient Name: GARFIELD MÁRQUEZ Admission Status: ER Accout number: [id number] Admission Date: 04-08-2020 : 1955 Admission Diagnosis: Attending: ELVIN, Current LOS: 1 Anticipated DC Date: Planned Disposition: Home Primary Insurance: [employer] MEDICARE ADV Discharge Planning Comments: CM met with patient and his friend in the room. I gave him a SALAZAR and explained. He states his street address is [address] [place] [address]. His PCP is Dr. Carolina. He does get his medicines as prescribed and states his insurance pays for his medications. States he rents a place from his friend's son, but plans on finding a new place to live. States his living situation at this time is not "good". Denies discharge needs. Software Engineering Associate Manager: Leanne Weir DCP- Discharge Planning Updated by [email or web address]: Leanne Weir on 04/09/20 7:[address] I was called to patient's room per patient to fax to his chief financial officer proof that patient is in the hospital. I faxed notice of patient in the hospital to officer Guilherme Brower at [phone]. Coverage Notice Reviewer: [email or web address] - Leanne Weir Notice Issued Date-Time: 04/09/2020 13:09 Notice Type: Medicare Outpatient Observation Notice Notice Delivered To: Patient Relationship to Patient: Self Motor Coach Bus Driver Name: Delivery Method: HAND - Hand Delivered Moon Days: Prior Verbal Notification: Recipient Understood Notice: Yes Recipient Signature: Yes Med Rec Note Co-signed by Attending: Coverage Notice Comment: SALAZAR explained, signed, given, copy placed in MR Last DP export: 04/09/20 12:18 p Patient Name: GARFIELD MÁRQUEZ Page [id number] at 1138 All edits/amendments must be made on the electronic document DICTATION DATE: 04/11/20 113 TEST AND RESEARCH REACTOR OPERATOR: KATE 04/11/20 1137 RPT#: [id number] DC DATE:04/10/20 STATUS: DIS IN [facility] [address] [place] [address] END OF REPORT
== END 2020-04-10 16:48 | disposition home or self-care (01) ==
LOC: D.ER 14:33 → D.M2 16:37 → OBSVTIME 16:37 → D.M2 16:37
PROVIDERS: Family Medicine; ADMIT Family Medicine; ATTEND Family Medicine
DX: I25.110 Atherosclerotic heart disease of native coronary artery with unstable angina pectoris (principal); I10 Essential (primary) hypertension; E11.69 Type 2 diabetes mellitus with other specified complication; E78.5 Hyperlipidemia, unspecified

== ENCOUNTER 2020-05-26 09:36 | Emergency (ER) | payer MEDICARE, MEDICAID ==
[~2020-05-26] VITALS: Ht 177.8 cm; Wt 74.1 kg
[2020-05-26 09:40] VITALS: Ht 177.8 cm; Wt 74.1 kg
[2020-05-26 10:03] LABS: CALC OSMOLALITY 282 mosm/kg (275-300); CALCIUM 8.8 mg/dL (8.5-10.1); CARBON DIOXIDE 26.7 mmol/L (21.0-32.0); CHLORIDE - SERUM 107 mmol/L (98-107); CREATININE - SERUM 0.9 mg/dL (0.6-1.3); GLUCOSE 145 mg/dL (74-106); POTASSIUM - SERUM 4.1 mmol/L (3.5-5.1); SODIUM 141 mmol/L (136-145); UREA NITROGEN 11 mg/dL (7-18); eGFR NON AFRICAN AMERICAN > 90 mL/min (90-120)
[2020-05-26 10:05] LABS: APTT 30.1 SECONDS (22.8-39.4); INR 0.94 (0.85-1.17); PROTIME 12.6 SECONDS (11.6-15.0)
[2020-05-26 10:08] LABS: BASOPHILS 0.5 % (0-2); EOSINOPHILS 2.5 % (0-7); HEMATOCRIT 42.9 % (42.0-54.0); HEMOGLOBIN 14.6 g/dL (13.5-17.5); IMMATURE GRANULOCYTES 0.2 % (0-5); LYMPHOCYTES 26.8 % (15-50); MCH 31.3 pg (26.0-34.0); MCV 92.1 fL (80.0-100.0); MEAN PLATELET VOLUME 10.1 fL (7.4-10.4); MONOCYTES 5.3 % (2-11); NEUTROPHILS 64.7 % (40-80); PLATELET COUNT 208 10x3/uL (130-400); RBC 4.66 10x6/uL (4.20-6.10); RDW 12.9 % (11.5-14.5); WBC 8.3 10x3/uL (4.8-10.8)
[2020-05-26 10:19] LABS: ALBUMIN 3.1 g/dL (3.4-5.0); ALKALINE PHOSPHATASE 50 U/L (30-120); ALT (SGPT) 25 U/L (10-68); BILIRUBIN - TOTAL 0.26 mg/dL (0.2-1.3); CKMB 2.3 U/L (0.0-3.6); CREATINE KINASE 51 UL (21-232); MAGNESIUM - SERUM 1.9 mg/dL (1.8-2.4); PROTEIN - SERUM 5.9 g/dL (6.4-8.2)
[2020-05-26 10:21] LABS: TROPONIN-I < 0.017 ng/mL (0.000-0.060)
[2020-05-26 14:55] VITALS: BP 120/75
== END 2020-05-26 14:55 | disposition home or self-care (01) ==
LOC: D.ER 09:36
PROVIDERS: Emergency Medicine
DX: I20.9 Angina pectoris, unspecified (principal); Z91.14 Patient's other noncompliance with medication regimen; R07.9 Chest pain, unspecified; I10 Essential (primary) hypertension; Z72.0 Tobacco use; E11.9 Type 2 diabetes mellitus without complications; Z79.84 Long term (current) use of oral hypoglycemic drugs; M54.2 Cervicalgia; M79.602 Pain in left arm